=== PATIENT | male | born 1975 | race Two or more races ===

== ENCOUNTER 2019-06-23 13:07 | Inpatient (IN) | payer MEDICARE, MEDICAID ==
[~2019-06-23] VITALS: Ht 180.3 cm; Wt 171.9 kg
--- NOTE | 2019-06-23 13:11 | NUR ---
ED Nurse Note: pt brought in by ambulance from [facility] c/c SI and combative behavior to staff at [facility], per EMS report, the staff at the [facility] found pt cutting himself. no wound noted at this time. pt reports SI. pt AA&ox4, russian speaking, calm and cooperative, ambulatory w/ steady gait, vss, will cont monitor.
[2019-06-23 14:07] LABS: BASOPHILS % (AUTO) 0.8 % (0.0-2.0); EOSINOPHILS % (AUTO) 1.8 % (0.0-3.0); HEMATOCRIT 46.3 % (42.0-52.0); HEMOGLOBIN 15.2 G/DL (14.2-18.0); LYMPHOCYTES % (AUTO) 21.6 % (20.0-45.0); MEAN CORPUSCULAR VOLUME 85 FL (80-99); NEUTROPHILS % (AUTO) 65.8 % (45.0-75.0); PLATELET COUNT 226 K/UL (150-450); RED BLOOD COUNT 5.45 M/UL (4.70-6.10); RED CELL DISTRIBUTION WIDTH 13.3 % (11.6-14.8); WHITE BLOOD COUNT 7.2 K/UL (4.8-10.8)
--- NOTE | 2019-06-23 14:14 | NUR ---
patient has conservator public guardian instructed to fax the guardianship
[2019-06-23 14:24] LABS: ANION GAP 9 mmol/L (5-15); BLOOD UREA NITROGEN 17 mg/dL (7-18); CALCIUM 8.5 MG/DL (8.5-10.1); CARBON DIOXIDE 26 MMOL/L (21-32); CHLORIDE 105 MMOL/L (98-107); CREATININE 1.1 MG/DL (0.55-1.30); SODIUM 140 MMOL/L (136-145)
[2019-06-23 14:29] LABS: ALANINE AMINOTRANSFERASE 21 U/L (12-78); ALBUMIN 2.9 G/DL (3.4-5.0); ALBUMIN/GLOBULIN RATIO 0.6 (1.0-2.7); ALKALINE PHOSPHATASE 86 U/L (46-116); ASPARTATE AMINO TRANSFERASE 20 U/L (15-37); BILIRUBIN,TOTAL 0.5 MG/DL (0.2-1.0)
[2019-06-23] MEDS ORDERED: Depakote ER 500mg tab ORAL ONE (14:45)
[2019-06-23] MEDS ORDERED: Tylenol #3 tab (300mg/30mg) ORAL ONE (15:15)
[2019-06-23 15:20] VITALS: BP 108/68
[2019-06-23] MEDS ORDERED: Tetanus/Diptheria/Pertussis IM ONE (15:30)
[2019-06-23] MEDS ORDERED: Bacitracin Oint UD TOPIC ONE (15:30)
--- NOTE | 2019-06-23 15:38 | Emergency Room Report ---
History of Present Illness General Chief Complaint: Suicidal Source: Patient, Medical Record, EMS Present Illness HPI 44-year-old male presents ED for evaluation. Brought in by EMS from [facility] facility. Patient brought in for behavioral evaluation. History of psych. States is not been on his medications for the last few days because he does not have refills. Is hearing voices. Has superficial cuts to his left wrist. Denies SI or HI. Tetanus unknown. Denies pain. No other aggravating relieving factors. Denies any other associated symptoms Allergies: Coded Allergies: PENICILLINS (Verified Allergy, Unknown, 06/23/19) Patient History Past Medical History: GERD Past Surgical History: none Pertinent Family History: none Social History: Denies: smoking, alcohol use, drug use Immunizations: UTD Reviewed Nursing Documentation: PMH: Agreed; PSxH: Agreed Nursing Documentation-PMH Past Medical History: No History, Except For Hx Hypertension: Yes Hx Diabetes: Yes Hx Gastrointestinal Problems: Yes - gastritis History Of Psychiatric Problem: Yes - bipolar, anxiety Hx Seizures: Yes Review of Systems All Other Systems: negative except mentioned in HPI Physical Exam Vital Signs Date Time Temp Pulse Resp B/P (MAP) Pulse Ox O2 Delivery O2 Flow Rate FiO2 06/23/19 13:11 98.1 88 20 92/62 (72) 95 Room Air Sp02 EP Interpretation: reviewed, normal General Appearance: no apparent distress, alert, GCS 15, non-toxic, obese Head: normocephalic, atraumatic Eyes: bilateral eye normal inspection, bilateral eye PERRL ENT: hearing grossly normal, normal pharynx, no angioedema, normal voice Neck: full range of motion, supple/symm/no masses Respiratory: chest non-tender, lungs clear, normal breath sounds, speaking full sentences Cardiovascular #1: regular rate, rhythm, no edema Cardiovascular #2: 2+ carotid (R), 2+ carotid (L), 2+ radial (R), 2+ radial (L) , 2+ dorsalis pedis (R), 2+ dorsalis pedis (L) Gastrointestinal: normal bowel sounds, non tender, soft, non-distended, no guarding, no rebound Rectal: deferred Genitourinary: normal inspection, no CVA tenderness Musculoskeletal: back normal, gait/station normal, normal range of motion, non- tender Neurologic: alert, oriented x3, responsive, motor strength/tone normal, sensory intact, speech normal Psychiatric: mood/affect normal, no suicidal/homicidal ideation, depressed affect, anxious Reflexes: 3+ bicep (R), 3+ bicep (L), 3+ tricep (R), 3+ tricep (L), 3+ knee (R) , 3+ knee (L) Skin: other - multiple superficial lacerations to L wrist Lymphatic: no adenopathy Medical Decision Making Diagnostic Impression: Primary Impression: Behavioral disorder ER Course Hospital Course 44 yo M presents to ED for psychiatric evaluation. hearing voices. multiple superficial cuts to L wrist Differential diagnoses include: Major depressive disorder, unspecified psychosis , EtOH abuse, drug abuse Clinical course Patient placed on stretcher. On one to one observation. After initial history and physical I ordred labs, U. tox Labs-electrolytes normal, aspirin/Tylenol levels normal, EtOH level normal, U. tox negative, depakote level subtherpaeutic Given Depakote here. Bacitracin and dressing applied to left forearm.tetatnus given Spoke to Psychiatrist Dr Ángela Neumann. He will accept patient at [facility] for transfer. Spoke to Dr. Kaufman (covering for Dr Verdin) Patient is medically cleared and pending psychiatric evaluation. i. I feel this is a highly complex case requiring extensive working including EKG/Rhythm strip, Xray/CT/US, Blood/urine lab work, repeat exams while in ED, and administration of strong opiates/narcotics for pain control, admission to hospital or close patient follow up. Labs Test 06/23/19 13:30 06/23/19 13:39 White Blood Count 7.2 K/UL (4.8-10.8) Red Blood Count 5.45 M/UL (4.70-6.10) Hemoglobin 15.2 G/DL (14.2-18.0) Hematocrit 46.3 % (42.0-52.0) Mean Corpuscular Volume 85 FL (80-99) Mean Corpuscular Hemoglobin 28.0 PG (27.0-31.0) Mean Corpuscular Hemoglobin Concent 32.9 G/DL (32.0-36.0) Red Cell Distribution Width 13.3 % (11.6-14.8) Platelet Count 226 K/UL (150-450) Mean Platelet Volume 7.8 FL (6.5-10.1) Neutrophils (%) (Auto) 65.8 % (45.0-75.0) Lymphocytes (%) (Auto) 21.6 % (20.0-45.0) Monocytes (%) (Auto) 10.0 % (1.0-10.0) Eosinophils (%) (Auto) 1.8 % (0.0-3.0) Basophils (%) (Auto) 0.8 % (0.0-2.0) Sodium Level 140 MMOL/L (136-145) Potassium Level 4.0 MMOL/L (3.5-5.1) Chloride Level 105 MMOL/L (98-107) Carbon Dioxide Level 26 MMOL/L (21-32) Anion Gap 9 mmol/L (5-15) Blood Urea Nitrogen 17 mg/dL (7-18) Creatinine 1.1 MG/DL (0.55-1.30) Estimat Glomerular Filtration Rate > 60 mL/min (>60) Glucose Level 93 MG/DL (74-106) Calcium Level 8.5 MG/DL (8.5-10.1) Total Bilirubin 0.5 MG/DL (0.2-1.0) Aspartate Amino Transf (AST/SGOT) 20 U/L (15-37) Alanine Aminotransferase (ALT/SGPT) 21 U/L (12-78) Alkaline Phosphatase 86 U/L (46-116) Total Protein 7.4 G/DL (6.4-8.2) Albumin 2.9 G/DL (3.4-5.0) Globulin 4.5 g/dL Albumin/Globulin Ratio 0.6 (1.0-2.7) Salicylates Level 0.2 ug/mL (2.8-20) Acetaminophen Level < 2 MCG/ML (10-30) Valproic Acid (Depakene) Level 46 MCG/ML (50-100) Serum Alcohol < 3 mg/dL Urine Opiates Screen Negative (NEGATIVE) Urine Barbiturates Screen Negative (NEGATIVE) Phencyclidine (PCP) Screen Negative (NEGATIVE) Urine Amphetamines Screen Negative (NEGATIVE) Urine Benzodiazepines Screen Negative (NEGATIVE) Urine Cocaine Screen Negative (NEGATIVE) Urine Marijuana (THC) Screen Negative (NEGATIVE) Last Vital Signs Date Time Temp Pulse Resp B/P (MAP) Pulse Ox O2 Delivery O2 Flow Rate FiO2 06/23/19 13:11 98.1 88 20 92/62 (23) 95 Room Air Status: improved Disposition: XFER TO PSYCH HOSP/UNIT Condition: Serious Referrals: Sang Verdin DO (PCP) Humphrey Whatley MD Jun 23, 2019 15:38
--- NOTE | 2019-06-23 15:43 | NUR ---
Received patients conservatorship letters.
--- NOTE | 2019-06-23 16:14 | NUR ---
natty blackmon states they have not recived the clinicals
--- NOTE | 2019-06-23 16:45 | NUR ---
clinicals faxed again
[2019-06-23 17:57] VITALS: BP 100/65
--- NOTE | 2019-06-23 17:59 | NUR ---
ED Nurse Note: pt provided with dinner tray
--- NOTE | 2019-06-23 18:31 | NUR ---
call recived from [facility] report given will call back after presenting the case to machinery repair maintenance supervisor due to his weight. also will send clinician to evaluate
--- NOTE | 2019-06-23 18:46 | NUR ---
Irineo called from [place]- declined the patient. Dr. Whatley contacted to admit pat to [facility].
--- NOTE | 2019-06-23 19:05 | NUR ---
Regina supervisor felting notified for sitter.
--- NOTE | 2019-06-23 19:27 | NUR ---
ER Nurse Note: Pt verbally aggressive after refusing to wear hospial gown. ER MD, primary RN, sitter attempted to calm pt. Pt eventually calmed down, med ordered and given. Pt now calm and cooperative; agreed to change in gown. Pt a&ox4, VSS, no signs of distress. Pt has superficial lacs on LT arm. Pt provided water as requested. SLIV RT hand; patent. Will continue to [facility].
[2019-06-23 21:05] VITALS: BP 110/72
--- NOTE | 2019-06-23 21:05 | NUR ---
ER Nurse Note: Report given to THUY Madrigal for continuity of care. Pt a&ox4, VSS, no signs of distress. Pt left via wheelchair, with all belongings with sitter. Pt is verbally aggresstive. Pt agreed to MRSA swab but refused CRE/VRE, witnessed by Rohan, RN at bedside.
--- NOTE | 2019-06-23 21:05 | NUR ---
NURSE NOTES: Received report from THUY Mcclain from ER. Patient arrived on the unit via wheelchair with sitter having the belongings. Patient awake, alert, and verbally responsive with some aggression. Per patient, he was upset that they forced him to wear gown. But he calmed down eventually during the admission questionnaire. THUY Mcclain came up to finish MRSA swab and VRE swab. Patient refused VRE swab but agreed to do MRSA swab. Patient has multiple lacerations on the left arm and closed blister on the left leg with some skin abrasions. Patient's back and abdomen is clean without any skin issues except some scabs on abdomen, scattered. Patient refused to show his bottom or buttock, even after multiple attempts of encouraging him that it is to view that his skin is intact or not. Breathing unlabored and evenly without distress, discomfort, or sOB noted. Denies pain at this time. Bed placed at the lowest with brakes and side rails up x 1 for safety. Patient refused putting up another side rails on the side. Patient refused to count and confirm the belongings. Was able to inspect visually some clothing and cigarette. Explained patient about the smoking policy and patient agreed to store those cigarettes and light in the nursing station. Placed in the bag and kept in nursing station. Informed Charge nurse, Taya. IV site noted on the right hand intact and currently saline locked. Call light placed within reach and will continue to monitor and provide care as ordered.
[2019-06-23] MEDS ORDERED: Morphine Sulfate 2mg/ml Inj(IV/IM USE ONLY) IVP PRN (22:30)
[2019-06-23] MEDS ORDERED: Miralax 17gm pkt ORAL PRN (22:30)
[2019-06-23] MEDS ORDERED: LORazepam Inj 2mg/ml 1ml IV PRN (22:30)
[2019-06-23] MEDS ORDERED: Zolpidem 5mg tab ORAL PRN (22:30)
[2019-06-24] VITALS: BP 122/71
[2019-06-24 04:00] VITALS: BP 123/53
[2019-06-24 05:53] LABS: BASOPHILS % (AUTO) 0.7 % (0.0-2.0); EOSINOPHILS % (AUTO) 4.9 % (0.0-3.0); HEMOGLOBIN 13.5 G/DL (14.2-18.0); LYMPHOCYTES % (AUTO) 25.3 % (20.0-45.0); MEAN CORPUSCULAR VOLUME 85 FL (80-99); MONOCYTES % (AUTO) 10.6 % (1.0-10.0); NEUTROPHILS % (AUTO) 58.5 % (45.0-75.0); PLATELET COUNT 189 K/UL (150-450); RED BLOOD COUNT 4.82 M/UL (4.70-6.10); RED CELL DISTRIBUTION WIDTH 13.4 % (11.6-14.8); WHITE BLOOD COUNT 5.9 K/UL (4.8-10.8)
[2019-06-24] MEDS: NovoLOG Insulin Flexpen SUBQ SCH ×4 (06:14→21:00)
--- NOTE | 2019-06-24 06:30 | NUR ---
NURSE NOTES: Charge nurse, THUY Bain made aware of the open blister.
[2019-06-24 06:31] LABS: ALANINE AMINOTRANSFERASE 15 U/L (12-78); ALBUMIN 2.5 G/DL (3.4-5.0); ALBUMIN/GLOBULIN RATIO 0.7 (1.0-2.7); ALKALINE PHOSPHATASE 77 U/L (46-116); ASPARTATE AMINO TRANSFERASE 15 U/L (15-37); BILIRUBIN,TOTAL 0.3 MG/DL (0.2-1.0); BLOOD UREA NITROGEN 18 mg/dL (7-18); CALCIUM 7.6 MG/DL (8.5-10.1); CARBON DIOXIDE 30 MMOL/L (21-32); CHOLESTEROL 136 MG/DL (< 200); HDL CHOLESTEROL 25 MG/DL (40-60); TRIGLYCERIDES 209 MG/DL (30-150)
--- NOTE | 2019-06-24 06:31 | NUR ---
NURSE NOTES: Patient pop opened the blister. Clean open skin. Cleansed with NS and kept open to air. Will endorse to day time nurse if any follow up is necessary.
[2019-06-24 06:46] LABS: CHLORIDE 102 MMOL/L (98-107); POTASSIUM 3.3 MMOL/L (3.5-5.1); SODIUM 137 MMOL/L (136-145)
--- NOTE | 2019-06-24 07:38 | Consultation ---
History of Present Illness General Date patient seen: Jun 24, 2019 Chief Complaint: Suicidal Present Illness HPI 44-year-old male with psychiatric disorder, morbid obesity, DM, recently discharged from a [facility] facility to [facility] presented to ED for evaluation of hearing voices He wa not been on his medications for the last few days because he does not have refills. Has superficial cuts to his left wrist. He is admitted for further evaluation. Allergies: Coded Allergies: PENICILLINS (Verified Allergy, Unknown, 06/23/19) Medication History Unable to Obtain Active Prescriptions or Reported Meds Patient History Healthcare decision maker N Resuscitation status Full Code Advanced Directive on File Past Medical/Surgical History Past Medical/Surgical History: (1) Psychiatric disorder (2) Seizure disorder (3) Hypothyroidism (4) Diabetes mellitus (5) History of suicide attempt Review of Systems All Other Systems: negative except mentioned in HPI Physical Exam General Appearance: WD/WN, morbidly obese Lines, tubes and drains: peripheral HEENT: normocephalic Neck: non-tender, normal alignment Respiratory/Chest: chest wall non-tender, normal breath sounds Breasts: no masses Cardiovascular/Chest: normal peripheral pulses, normal rate Abdomen: normal bowel sounds Genitourinary/Rectal: normal genital exam Extremities: normal range of motion Last 24 Hour Vital Signs Date Time Temp Pulse Resp B/P (MAP) Pulse Ox O2 Delivery O2 Flow Rate FiO2 06/24/19 04:00 97.7 86 18 123/53 (76) 97 06/24/19 00:28 Room Air 06/24/19 00:00 97.5 70 18 122/71 (88) 97 06/23/19 21:05 98.1 82 18 110/72 98 Room Air 06/23/19 21:05 98.1 82 18 110/72 98 Room Air 06/23/19 17:57 98.1 77 19 100/65 96 Room Air 06/23/19 16:53 88 20 Room Air 06/23/19 16:49 98.0 06/23/19 15:20 98.1 75 20 108/68 95 Room Air 06/23/19 13:11 98.1 88 20 92/62 (72) 95 Room Air Intake and Output 06/23/19 06/24/19 18:59 06:59 Intake Total 200 ml 1400 ml Balance 200 ml 1400 ml Intake Oral 200 ml 1400 ml # Voids 1 1 Laboratory Tests Test 06/23/19 13:30 06/23/19 13:39 06/24/19 04:55 White Blood Count 7.2 K/UL (4.8-10.8) 5.9 K/UL (4.8-10.8) Red Blood Count 5.45 M/UL (4.70-6.10) 4.82 M/UL (4.70-6.10) Hemoglobin 15.2 G/DL (14.2-18.0) 13.5 G/DL (14.2-18.0) L Hematocrit 46.3 % (42.0-52.0) 41.0 % (42.0-52.0) L Mean Corpuscular Volume 85 FL (80-99) 85 FL (80-99) Mean Corpuscular Hemoglobin 28.0 PG (27.0-31.0) 28.1 PG (27.0-31.0) Mean Corpuscular Hemoglobin Concent 32.9 G/DL (32.0-36.0) 33.0 G/DL (32.0-36.0) Red Cell Distribution Width 13.3 % (11.6-14.8) 13.4 % (11.6-14.8) Platelet Count 226 K/UL (150-450) 189 K/UL (150-450) Mean Platelet Volume 7.8 FL (6.5-10.1) 7.5 FL (6.5-10.1) Neutrophils (%) (Auto) 65.8 % (45.0-75.0) 58.5 % (45.0-75.0) Lymphocytes (%) (Auto) 21.6 % (20.0-45.0) 25.3 % (20.0-45.0) Monocytes (%) (Auto) 10.0 % (1.0-10.0) 10.6 % (1.0-10.0) H Eosinophils (%) (Auto) 1.8 % (0.0-3.0) 4.9 % (0.0-3.0) H Basophils (%) (Auto) 0.8 % (0.0-2.0) 0.7 % (0.0-2.0) Sodium Level 140 MMOL/L (136-145) 137 MMOL/L (136-145) Potassium Level 4.0 MMOL/L (3.5-5.1) 3.3 MMOL/L (3.5-5.1) L Chloride Level 105 MMOL/L (98-107) 102 MMOL/L (98-107) Carbon Dioxide Level 26 MMOL/L (21-32) 30 MMOL/L (21-32) Anion Gap 9 mmol/L (5-15) Blood Urea Nitrogen 17 mg/dL (7-18) 18 mg/dL (7-18) Creatinine 1.1 MG/DL (0.55-1.30) 1.0 MG/DL (0.55-1.30) Estimat Glomerular Filtration Rate > 60 mL/min (>60) > 60 mL/min (>60) Glucose Level 93 MG/DL (74-106) 109 MG/DL (74-106) H Calcium Level 8.5 MG/DL (8.5-10.1) 7.6 MG/DL (8.5-10.1) L Total Bilirubin 0.5 MG/DL (0.2-1.0) 0.3 MG/DL (0.2-1.0) Aspartate Amino Transf (AST/SGOT) 20 U/L (15-37) 15 U/L (15-37) Alanine Aminotransferase (ALT/SGPT) 21 U/L (12-78) 15 U/L (12-78) Alkaline Phosphatase 86 U/L (46-116) 77 U/L (46-116) Total Protein 7.4 G/DL (6.4-8.2) 6.1 G/DL (6.4-8.2) L Albumin 2.9 G/DL (3.4-5.0) L 2.5 G/DL (3.4-5.0) L Globulin 4.5 g/dL 3.6 g/dL Albumin/Globulin Ratio 0.6 (1.0-2.7) L 0.7 (1.0-2.7) L Salicylates Level 0.2 ug/mL (2.8-20) L Acetaminophen Level < 2 MCG/ML (10-30) L Valproic Acid (Depakene) Level 46 MCG/ML (50-100) L Serum Alcohol < 3 mg/dL Urine Opiates Screen Negative (NEGATIVE) Urine Barbiturates Screen Negative (NEGATIVE) Phencyclidine (PCP) Screen Negative (NEGATIVE) Urine Amphetamines Screen Negative (NEGATIVE) Urine Benzodiazepines Screen Negative (NEGATIVE) Urine Cocaine Screen Negative (NEGATIVE) Urine Marijuana (THC) Screen Negative (NEGATIVE) Triglycerides Level 209 MG/DL (30-150) H Cholesterol Level 136 MG/DL (< 200) LDL Cholesterol 88 mg/dL (<100) HDL Cholesterol 25 MG/DL (40-60) L Cholesterol/HDL Ratio 5.4 (3.3-4.4) H Thyroid Stimulating Hormone (TSH) 2.892 uiU/mL (0.358-3.740) Height (Feet): 5 Height (Inches): 11.00 Weight (Pounds): 379 Medications Current Medications Medications (Trade) Dose Ordered Sig/Vannessa Route PRN Reason Start Time Stop Time Status Last Admin Dose Admin Acetaminophen (Tylenol) 650 mg Q4H PRN ORAL fever 06/23/19 22:30 07/23/19 22:29 Dextrose (Dextrose 50%) STAT PRN IV Hypoglycemia 06/23/19 22:30 07/23/19 22:29 Dextrose (Dextrose 50%) STAT PRN IV Hypoglycemia 06/23/19 22:30 07/23/19 22:29 Insulin Aspart (NovoLOG) BEFORE MEALS AND HS SUBQ 06/24/19 06:30 07/24/19 06:29 Lorazepam (Ativan 2mg/ml 1ml) 0.5 mg Q4H PRN IV For Anxiety 06/23/19 22:30 06/30/19 22:29 Morphine Sulfate (Morphine Sulfate) 1 mg Q4H PRN IVP For Pain 06/23/19 22:30 06/30/19 22:29 Ondansetron HCl (Zofran) 4 mg Q6H PRN IVP Nausea & Vomiting 06/23/19 22:30 07/23/19 22:29 Polyethylene Glycol (Miralax) 17 gm HSPRN PRN ORAL Constipation 06/23/19 22:30 07/23/19 22:29 Zolpidem Tartrate (Ambien) 5 mg HSPRN PRN ORAL Insomnia 06/23/19 22:30 06/30/19 22:29 Assessment/Plan Problem List: (1) Suicide gesture ICD Codes: X83.8XXA - Intentional self-harm by other specified means, initial encounter SNOMED: 66385637 (2) Seizure disorder ICD Codes: G40.909 - Epilepsy, unspecified, not intractable, without status epilepticus SNOMED: 045376085 (3) Psychiatric disorder ICD Codes: F99 - Mental disorder, not otherwise specified SNOMED: 21849443 (4) Hypothyroidism ICD Codes: E03.9 - Hypothyroidism, unspecified SNOMED: 28996716 (5) Diabetes mellitus ICD Codes: E11.9 - Type 2 diabetes mellitus without complications SNOMED: 55435367 (6) History of suicide attempt ICD Codes: Z91.5 - Personal history of self-harm SNOMED: 50791061, 225054169 Assessment/Plan: resume psych meds sliding scale I don't think pt is suicidal can go back to retirement once his medications are available at the retirement. Matt Cabrera MD Jun 24, 2019 07:38
--- NOTE | 2019-06-24 07:40 | NUR ---
HAND-OFF: Report given to Shan Castillo RN. Patient in stable condition with sitter at the bedside.
[2019-06-24 08:00] VITALS: BP 108/50
[2019-06-24] MEDS ORDERED: LORazepam 0.5mg tab ORAL PRN (08:00)
[2019-06-24] MEDS ORDERED: LIPITOR20 MG ORAL (08:04)
[2019-06-24] MEDS ORDERED: VALPROIC ACID250 MG PO (08:04)
[2019-06-24] MEDS ORDERED: ATIVAN1 MG ORAL (08:04)
[2019-06-24] MEDS ORDERED: LEVOTHYROXINE125 MCG ORAL (08:04)
[2019-06-24] MEDS ORDERED: ENALAPRIL MALEAT5 MG ORAL (08:04)
[2019-06-24] MEDS ORDERED: SEROQUEL200 MG ORAL ×2 (08:04)
[2019-06-24] MEDS ORDERED: PROPRANOLOL HCL10 MG ORAL (08:04)
[2019-06-24] MEDS ORDERED: SPIRONOLACTONE50 MG ORAL (08:04)
--- NOTE | 2019-06-24 08:15 | NUR ---
NURSE NOTES: PT AXOX3, CALM, RESTING IN BED. SITTER AT BEDSIDE. IN NO APPARENT DISTRESS AT THIS TIME. PT DENIES SUICIDAL THOUGHTS. WILL CONTINUE TO MONITOR.
[2019-06-24] MEDS ORDERED: Valproic Acid 250mg/5ml Liquid ORAL SCH (09:00)
[2019-06-24] MEDS: Enalapril 5mg tab ORAL SCH (09:47)
[2019-06-24 12:00] VITALS: BP 126/66
--- NOTE | 2019-06-24 12:00 | NUR ---
NURSE NOTES: PT REFUSING IV ACCESS.
--- NOTE | 2019-06-24 15:17 | NUR ---
CASE MANAGEMENT: INITIAL REVIEW 44 YO M [place] FROM [facility] CC: HEARING VOICES. SUPERFICIAL CUTS LEFT WRIST PMHx: GERD. HTN. DM. GASTRITIS. SZ. SI:ENCEPHALOPATHY. T 98.1 HR 88 RR 20 B/P 92/62 SATS 95% ON RA VALPROIC ACID 46 IS: DEPAKOTE PO X1 TYLENOL PO X1 TDAP IM X1 PATIENT ADMITTED TO MED/SURG STATUS 06/23/2019 @ 8831 DCP: PATIENT TO BE DISCHARGED TO HOME ONCE MEDICALLY CLEARED. PLAN OF CARE: PSYCH CONSULT Addendum: 06/24/19 at 1528 by Caroline Sullivan CM INTERQUAL MET
[2019-06-24 16:00] VITALS: BP 125/72
--- NOTE | 2019-06-24 19:30 | NUR ---
HAND-OFF: Report given to Abner FITZGERALD RN.
--- NOTE | 2019-06-24 19:53 | NUR ---
NURSE NOTES: Received report from Shan Castillo RN. Patient steadily sitting up on the bed, awake, alert, and verbally responsive to let his needs known. Breathing unlabored and evenly without signs of distress, discomfort, or sob. Denies pain at this time. Bed placed at the lowest with brakes on and side rails up x 2 and padded for history of epilepsy (patient denies history of epilepsy, written on the SNF medical packet). Sitter at the bedside. Reeducated patient regarding his diet plan. Patient was not able to understand, will reinforce during the shift. Call light placed within reach. Will continue to monitor and provide care as ordered.
[2019-06-24 20:00] VITALS: BP 127/76
[2019-06-24] MEDS: QUEtiapine 200mg tab ORAL SCH (21:18)
--- NOTE | 2019-06-24 22:20 | History & Physical ---
History and Physical History & Physicial Internal Medicine H&P Chief Complaint: Suicidal Source: Patient, Medical Record, EMS DOS: 06/24/[address] Antonella Verdin HPI 44-year-old male presents ED for evaluation. Brought in by EMS from [facility] facility. Patient brought in for behavioral evaluation. History of psych. States is not been on his medications for the last few days because he does not have refills. Is hearing voices. Has superficial cuts to his left wrist. Denies SI or HI. Tetanus unknown. Denies pain. No other aggravating relieving factors. Denies any other associated symptoms. Patient was Seen in the am, had a sitter 1:1 is very confused, could be due to seroquel and I evaluated with Dr. Verdin coverage, as well as with Dr. Cabrera Coded Allergies: PENICILLINS (Verified Allergy, Unknown, 06/23/19) Patient History Past Medical History: GERD Past Surgical History: none Pertinent Family History: none Social History: Denies: smoking, alcohol use, drug use Immunizations: UTD Reviewed Nursing Documentation: PMH: Agreed; PSxH: Agreed Nursing Documentation-PMH Past Medical History: No History, Except For Hx Hypertension: Yes Hx Diabetes: Yes Hx Gastrointestinal Problems: Yes - gastritis History Of Psychiatric Problem: Yes - bipolar, anxiety Hx Seizures: Yes Review of Systems Negative except mentioned in HPI Physical Exam Vital Signs Date Time Temp Pulse Resp B/P (MAP) Pulse Ox O2 Delivery O2 Flow Rate FiO2 06/23/19 13:11 98.1 88 20 92/62 (72) 95 Room Air General: no apparent distress, alert, GCS 15, non-toxic Head: normocephalic, atraumatic Resp: chest non-tender, lungs clear, normal breath sounds Cv: regular rate, rhythm, no edema Gi: normal bowel sounds, non tender, soft, non-distended Gu: normal inspection, no CVA tenderness Msk: back normal, gait/station normal Skin: other - multiple superficial lacerations to L wrist Lymphatic: no adenopathy Assessment and Recs: # Psychaitric admission for presents to ED for psychiatric evaluation. hearing voices. --> psychiatry to eval in regards to meds and management --> is currently with sitter 1:1 --> History of suicide attempt # Multiple superficial cuts to L wrist --> bactiracin as needed # Seizure disorder - Epilepsy, unspecified, not intractable, without status epilepticus --> currently well controlled # Hypothyroidism --> synthroid # Diabetes mellitus --> a1c goal <7 Tim Kaufman MD Jun 24, 2019 22:20
--- NOTE | 2019-06-24 23:05 | NUR ---
NURSE NOTES: Attempted to insert IV on patient but patient refused. Encouraged and explained more than three times. Informed MD regarding the situation.
[2019-06-25] VITALS: BP 140/70
[2019-06-25 04:00] VITALS: BP 135/71
[2019-06-25] MEDS: NovoLOG Insulin Flexpen SUBQ SCH ×4 (06:01→21:00)
[2019-06-25] MEDS ORDERED: LORazepam 0.5mg tab ORAL PRN (07:00)
--- NOTE | 2019-06-25 07:25 | NUR ---
NURSE NOTES: PT AXOX3, CALM, SITTING ON BED EATING BREAKFAST. PT YELLS AT RN "I WANT MORE FOOD! I WANT MORE FOOD! WHY WON'T YOU GIVE ME MORE FOOD?!". RN EXPLAINED TO PT HE IS ON DIABETIC DIET SO KITCHEN CANNOT SEND UP EXTRA PORTIONS OF FOOD. RN MADE DR MARIN AWARE OF PT'S COMPLAINTS. PT'S BLOOD SUGAR RANGE 77-[address] MARIN WITH ORDER TO CHANGE TO REGULAR DIET. OTHERWISE, IN NO APPARENT DISTRESS AT THIS TIME. SITTER AT BEDSIDE.
--- NOTE | 2019-06-25 07:40 | Pulmonology Progress Note ---
Assessment/Plan Problems: (1) Suicide gesture (2) Seizure disorder (3) Psychiatric disorder (4) Hypothyroidism (5) Diabetes mellitus (6) History of suicide attempt Assessment/Plan wants to go back to detention "never wanted to kill myself" awaiting psych consult. Subjective ROS Limited/Unobtainable: No Constitutional: Reports: no symptoms HEENT: Repors: no symptoms Allergies: Coded Allergies: PENICILLINS (Verified Allergy, Unknown, 06/23/19) Objective Last 24 Hour Vital Signs Date Time Temp Pulse Resp B/P (MAP) Pulse Ox O2 Delivery O2 Flow Rate FiO2 06/25/19 04:00 97.5 70 20 135/71 (92) 97 06/25/19 00:00 98.1 89 20 140/70 (93) 95 06/24/19 21:00 Room Air 06/24/19 20:00 98.1 75 20 127/76 (93) 94 06/24/19 16:00 97.5 72 20 125/72 (89) 95 06/24/19 12:00 97.3 67 23 126/66 (86) 92 06/24/19 09:47 118/69 06/24/19 09:00 Room Air 06/24/19 08:00 97.7 77 20 108/50 (69) 93 Intake and Output 06/24/19 06/25/19 19:00 07:00 Intake Total 840 ml Balance 840 ml Intake Oral 840 ml # Voids 4 General Appearance: WD/WN, other - obese HEENT: normocephalic Respiratory/Chest: lungs clear, no respiratory distress Cardiovascular: normal peripheral pulses, regular rhythm Abdomen: normal bowel sounds, no organomegaly Genitourinary: normal external genitalia Extremities: no clubbing Skin: no rash, no lesions Current Medications Medications (Trade) Dose Ordered Sig/Vannessa Route PRN Reason Start Time Stop Time Status Last Admin Dose Admin Acetaminophen (Tylenol) 650 mg Q4H PRN ORAL fever 06/23/19 22:30 07/23/19 22:29 Dextrose (Dextrose 50%) STAT PRN IV Hypoglycemia 06/23/19 22:30 07/23/19 22:29 Dextrose (Dextrose 50%) STAT PRN IV Hypoglycemia 06/23/19 22:30 07/23/19 22:29 Enalapril Maleate (Vasotec) 5 mg DAILY ORAL 06/24/19 09:00 07/24/19 08:59 Insulin Aspart (NovoLOG) BEFORE MEALS AND HS SUBQ 06/24/19 06:30 07/24/19 06:29 Levothyroxine Sodium (Synthroid) 100 mcg DAILY@0630 ORAL 06/25/19 06:30 07/25/19 06:29 06/25/19 05:59 Lorazepam (Ativan) 0.5 mg Q4H PRN ORAL For Anxiety 06/25/19 07:00 07/02/19 06:59 Morphine Sulfate (Morphine 10mg/ 5ml Oral Soln) 2 mg Q4H PRN ORAL For Pain 06/25/19 07:00 07/25/19 06:59 Ondansetron HCl (Zofran ODT) 4 mg Q6H PRN ORAL Nausea & Vomiting 06/25/19 07:00 07/25/19 06:59 Polyethylene Glycol (Miralax) 17 gm HSPRN PRN ORAL Constipation 06/23/19 22:30 07/23/19 22:29 Quetiapine Fumarate (SEROquel) 300 mg DAILY ORAL 06/24/19 09:00 07/24/19 08:59 06/24/19 09:50 Quetiapine Fumarate (SEROquel) 400 mg QHS ORAL 06/24/19 21:00 07/24/19 20:59 06/24/19 21:18 Valproic Acid (Depakene) 500 mg EVERY 12 HOURS ORAL 06/24/19 10:00 07/24/19 08:59 06/24/19 21:19 Zolpidem Tartrate (Ambien) 5 mg HSPRN PRN ORAL Insomnia 06/23/19 22:30 06/30/19 22:29 Matt Cabrera MD Jun 25, 2019 07:40
--- NOTE | 2019-06-25 07:42 | NUR ---
HAND-OFF: Report given to Shan Castillo RN. Patient in stable condition. All IV PRN (ativan, morphine, zofran) except dextrose 50% (PO route not available) was changed to PO medication per Dr. Cabrera's order due to patient refusing IV insertion. Consult for Mariann Corona was made per 's order.
[2019-06-25 08:00] VITALS: BP 110/74
[2019-06-25] MEDS: Enalapril 5mg tab ORAL SCH (09:00)
[2019-06-25 11:48] VITALS: BP 118/72
--- NOTE | 2019-06-25 15:54 | NUR ---
NURSE NOTES: SIMONE LEFT MESSSAGE FOR DR SANTOS FOR PSYCH CONSULT FOR SUICIDAL IDEATION AND CLEARANCE FOR DISCHARGE.
[2019-06-25 16:00] VITALS: BP 127/62
[2019-06-25] MEDS: Morphine Sulfate 10mg/5ml Oral Soln ud ORAL PRN (18:22)
--- NOTE | 2019-06-25 19:17 | NUR ---
HAND-OFF: Report given to Abner FITZGERALD RN.
--- NOTE | 2019-06-25 19:20 | NUR ---
NURSE NOTES: Received report from Shan Castillo RN. Patient alert, awake, and verbally responsive to let his needs known. He verbalizes that he is much happier with regular diet that he can eat chips. First thing patient asked was "get me some chips". Patient still with no IV access and MD aware. Breathing unlabored without distress or SOB noted. Sitter Joyce at the bedside for tonight. Bed placed at the lowest with brakes and side rails up x 2 for safety and bed mobility. Call light placed within reach. Will continue to monitor and provide care as ordered.
[2019-06-25 20:00] VITALS: BP 127/80
[2019-06-25] MEDS: QUEtiapine 200mg tab ORAL SCH (20:33)
--- NOTE | 2019-06-25 20:38 | General Progress Note ---
Assessment/Plan Status Narrative Assessment and Recs: # Psychaitric admission for presents to ED for psychiatric evaluation. hearing voices. --> psychiatry to eval in regards to meds and management --> is currently with sitter 1:1 --> History of suicide attempt --> psych made aware # Multiple superficial cuts to L wrist --> bactiracin as needed # Seizure disorder - epilepsy, unspecified, not intractable, without status epilepticus --> currently well controlled # Hypothyroidism --> synthroid po # Diabetes mellitus --> a1c goal <7 # Hypokalemia --> k prn, bmp reordered Appreciate databases software consultant recs Subjective Constitutional: Denies: no symptoms, chills, diaphoresis, fever, malaise, weakness, other HEENT: Denies: no symptoms, eye pain, blurred vision, tearing, double vision, ear pain, ear discharge, nose pain, nose congestion, throat pain, throat swelling, mouth pain, mouth swelling, other Gastrointestinal/Abdominal: Denies: no symptoms, abdomen distended, abdominal pain, black stools, tarry stools, blood in stool, constipated, diarrhea, difficulty swallowing, nausea, poor appetite, poor fluid intake, rectal bleeding , vomiting, other Genitourinary: Denies: no symptoms, burning, discharge, frequency, flank pain, hematuria, incontinence, pain, urgency, other Neurologic/Psychiatric: Denies: no symptoms, anxiety, depressed, emotional problems, headache, numbness, paresthesia, pre-existing deficit, seizure, tingling, tremors, weakness, other Endocrine: Denies: no symptoms, excessive sweating, flushing, intolerance to cold, intolerance to heat, increased hunger, increased thirst, increased urine, unexplained weight gain, unexplained weight loss, other Hematologic/Lymphatic: Denies: no symptoms, anemia, easy bleeding, easy bruising, other Allergies: Coded Allergies: PENICILLINS (Verified Allergy, Unknown, 06/23/19) Subjective 06/25: remains agitated, refusing ivl and made aware Dr. Narayan Neumann as well Objective Last 24 Hour Vital Signs Date Time Temp Pulse Resp B/P (MAP) Pulse Ox O2 Delivery O2 Flow Rate FiO2 06/25/19 16:00 97.1 78 19 127/62 (83) 95 06/25/19 11:48 97.4 74 18 118/72 (87) 94 06/25/19 09:00 Room Air 06/25/19 09:00 110/74 06/25/19 08:00 98.0 76 18 110/74 (86) 96 06/25/19 04:00 97.5 70 20 135/71 (92) 97 06/25/19 00:00 98.1 89 20 140/70 (93) 95 06/24/19 21:00 Room Air Intake and Output 06/24/19 06/25/19 19:00 07:00 Intake Total 840 ml Balance 840 ml Intake Oral 840 ml # Voids 4 Height (Feet): 5 Height (Inches): 11.00 Weight (Pounds): 379 Objective General: no apparent distress, alert Head: normocephalic, atraumatic Resp: chest non-tender, lungs clear, normal breath sounds Cv: regular rate, rhythm, no edema Gi: normal bowel sounds, non tender, soft, non-distended Gu: normal inspection, no CVA tenderness Msk: back normal, gait/station normal Skin: other - multiple superficial lacerations to L wrist Lymphatic: no adenopathy Tim Kaufman MD Jun 25, 2019 20:38
[2019-06-26] VITALS: BP 119/77
[2019-06-26 04:00] VITALS: BP 138/85
[2019-06-26] MEDS: NovoLOG Insulin Flexpen SUBQ SCH ×4 (06:03→20:35)
--- NOTE | 2019-06-26 07:31 | NUR ---
HAND-OFF: Report given to THUY Blanco. Patient in stable condition. 1:1 sitter at bedside.
--- NOTE | 2019-06-26 07:35 | NUR ---
NURSE NOTES: Received pt in bed. AO x 4. No s/s of pain/distress. No IV access and MD aware. Sitter at the bedside. Bed is in the lowest and locked. Side rails x 2. Call light within reach. Will continue to monitor
[2019-06-26 08:00] VITALS: BP_SYST 129; BP_SYST 139; BP_DIAS 77; BP_DIAS 91
--- NOTE | 2019-06-26 09:00 | NUR ---
NURSE NOTES: Patient needs to be cleared by Dr. Neumann to be discharged. Called to remind that he has consult for the patient and made aware.
--- NOTE | 2019-06-26 09:18 | General Progress Note ---
Assessment/Plan Status Narrative # Psychaitric admission for presents to ED for psychiatric evaluation. hearing voices. --> psychiatry to eval in regards to meds and management --> is currently with sitter 1:1 --> History of suicide attempt --> psych made aware, pending clearance # Multiple superficial cuts to L wrist --> bactiracin as needed # Seizure disorder - epilepsy, unspecified, not intractable, w/o status epilepticus --> currently well controlled # Hypothyroidism --> synthroid po # Diabetes mellitus --> a1c goal <7 # Hypokalemia --> k prn, bmp reordered Appreciate plan consultant recs Subjective Constitutional: Denies: no symptoms, chills, diaphoresis, fever, malaise, weakness, other Cardiovascular: Denies: no symptoms, chest pain, edema, irregular heart rate, lightheadedness, palpitations, syncope, other Respiratory: Denies: no symptoms, cough, orthopnea, shortness of breath, SOB with excertion, SOB at rest, sputum, stridor, wheezing, other Gastrointestinal/Abdominal: Denies: no symptoms, abdomen distended, abdominal pain, black stools, tarry stools, blood in stool, constipated, diarrhea, difficulty swallowing, nausea, poor appetite, poor fluid intake, rectal bleeding , vomiting, other Genitourinary: Denies: no symptoms, burning, discharge, frequency, flank pain, hematuria, incontinence, pain, urgency, other Neurologic/Psychiatric: Denies: no symptoms, anxiety, depressed, emotional problems, headache, numbness, paresthesia, pre-existing deficit, seizure, tingling, tremors, weakness, other Endocrine: Denies: no symptoms, excessive sweating, flushing, intolerance to cold, intolerance to heat, increased hunger, increased thirst, increased urine, unexplained weight gain, unexplained weight loss, other Allergies: Coded Allergies: PENICILLINS (Verified Allergy, Unknown, 06/23/19) Subjective 06/25: remains agitated, refusing ivl and made aware Dr. Narayan Neumann as well 06/26: less agitated overnight, no bleeding, overall feeling better, psych clearance pending Objective Last 24 Hour Vital Signs Date Time Temp Pulse Resp B/P (MAP) Pulse Ox O2 Delivery O2 Flow Rate FiO2 06/26/19 04:00 97.2 83 20 138/85 (102) 94 06/26/19 00:00 97.7 97 20 119/77 (91) 93 06/25/19 21:00 Room Air 06/25/19 20:00 98.0 76 19 127/80 (96) 92 06/25/19 16:00 97.1 78 19 127/62 (83) 95 06/25/19 11:48 97.4 74 18 118/72 (87) 94 Intake and Output 06/25/19 06/26/19 19:00 07:00 Intake Total 800 ml 600 ml Balance 800 ml 600 ml Intake Oral 800 ml 600 ml # Voids 3 3 # Bowel Movements 1 2 Height (Feet): 5 Height (Inches): 11.00 Weight (Pounds): 379 Objective General: no apparent distress, alert Head: normocephalic, atraumatic Resp: chest non-tender, lungs clear, normal breath sounds Cv: regular rate, rhythm, no edema Gi: normal bowel sounds, non tender, soft, non-distended Gu: normal inspection, no CVA tenderness Msk: back normal, gait/station normal Skin: other - multiple superficial lacerations to L wrist Lymphatic: no adenopathy Tim Kaufman MD Jun 26, 2019 09:18
[2019-06-26] MEDS: Morphine Sulfate 10mg/5ml Oral Soln ud ORAL PRN (09:32)
[2019-06-26] MEDS: Enalapril 5mg tab ORAL SCH (09:33)
--- NOTE | 2019-06-26 10:20 | NUR ---
NURSE NOTES: PAGED DR GOODWIN RE PSYCH CONSULT, LEFT VOICEMAIL, AWAIT CALLBACK
[2019-06-26 12:00] VITALS: BP 131/80
--- NOTE | 2019-06-26 12:01 | Pulmonology Progress Note ---
Assessment/Plan Problems: (1) Suicide gesture (2) Seizure disorder (3) Psychiatric disorder (4) Hypothyroidism (5) Diabetes mellitus (6) History of suicide attempt Assessment/Plan comfortable all reviewed wants to go back to senior living "never wanted to kill myself" awaiting psych consult. Subjective ROS Limited/Unobtainable: No Constitutional: Reports: no symptoms HEENT: Repors: no symptoms Respiratory: Reports: no symptoms Allergies: Coded Allergies: PENICILLINS (Verified Allergy, Unknown, 06/23/19) Objective Last 24 Hour Vital Signs Date Time Temp Pulse Resp B/P (MAP) Pulse Ox O2 Delivery O2 Flow Rate FiO2 06/26/19 09:33 129/77 06/26/19 09:00 Room Air 06/26/19 08:00 97.5 69 20 129/77 (94) 94 06/26/19 04:00 97.2 83 20 138/85 (102) 94 06/26/19 00:00 97.7 97 20 119/77 (91) 93 06/25/19 21:00 Room Air 06/25/19 20:00 98.0 76 19 127/80 (96) 92 06/25/19 16:00 97.1 78 19 127/62 (83) 95 Intake and Output 06/25/19 06/26/19 19:00 07:00 Intake Total 800 ml 600 ml Balance 800 ml 600 ml Intake Oral 800 ml 600 ml # Voids 3 3 # Bowel Movements 1 2 General Appearance: WD/WN HEENT: normocephalic, atraumatic Respiratory/Chest: chest wall non-tender, lungs clear Cardiovascular: normal peripheral pulses, normal rate Abdomen: normal bowel sounds, no organomegaly Extremities: no cyanosis Skin: no lesions Microbiology Date/Time Source Procedure Growth Status 06/23/19 21:30 Nasal Nares MRSA Culture - Final NO METHICILLIN RESISTANT STAPH AUREUS... Complete Current Medications Medications (Trade) Dose Ordered Sig/Vannessa Route PRN Reason Start Time Stop Time Status Last Admin Dose Admin Acetaminophen (Tylenol) 650 mg Q4H PRN ORAL fever 06/23/19 22:30 07/23/19 22:29 Dextrose (Dextrose 50%) STAT PRN IV Hypoglycemia 06/23/19 22:30 07/23/19 22:29 Dextrose (Dextrose 50%) STAT PRN IV Hypoglycemia 06/23/19 22:30 07/23/19 22:29 Enalapril Maleate (Vasotec) 5 mg DAILY ORAL 06/24/19 09:00 07/24/19 08:59 06/26/19 09:33 Insulin Aspart (NovoLOG) BEFORE MEALS AND HS SUBQ 06/24/19 06:30 07/24/19 06:29 06/25/19 12:22 Levothyroxine Sodium (Synthroid) 100 mcg DAILY@0630 ORAL 06/25/19 06:30 07/25/19 06:29 06/26/19 05:52 Lorazepam (Ativan) 0.5 mg Q4H PRN ORAL For Anxiety 06/25/19 07:00 07/02/19 06:59 Morphine Sulfate (Morphine 10mg/ 5ml Oral Soln) 2 mg Q4H PRN ORAL For Pain 06/25/19 07:00 07/25/19 06:59 06/26/19 09:32 Ondansetron HCl (Zofran ODT) 4 mg Q6H PRN ORAL Nausea & Vomiting 06/25/19 07:00 07/25/19 06:59 Polyethylene Glycol (Miralax) 17 gm HSPRN PRN ORAL Constipation 06/23/19 22:30 07/23/19 22:29 Quetiapine Fumarate (SEROquel) 300 mg DAILY ORAL 06/24/19 09:00 07/24/19 08:59 06/26/19 09:31 Quetiapine Fumarate (SEROquel) 400 mg QHS ORAL 06/24/19 21:00 07/24/19 20:59 06/25/19 20:33 Valproic Acid (Depakene) 500 mg EVERY 12 HOURS ORAL 06/24/19 10:00 07/24/19 08:59 06/26/19 09:32 Zolpidem Tartrate (Ambien) 5 mg HSPRN PRN ORAL Insomnia 06/23/19 22:30 06/30/19 22:29 Matt Cabrera MD Jun 26, 2019 12:01
--- NOTE | 2019-06-26 12:54 | NUR ---
SUPERVISOR SEAMINGFLIGHT OPERATIONS INSPECTOR SI: ENCEPHALOPATHY T. 97.5 HR 61 RR 20 B/P 129/77 RA 96% K 3.3 IS: SEROQUEL PO DEPAKENE PO SYNTHROID PO MED/SURG STATUS
--- NOTE | 2019-06-26 14:28 | NUR ---
Social Work This SW received a notification due to patient was feeling suicidal at the senior care (lives at [facility]). This SW met with patient who appears to show mentally delayed, while explaining he was not feeling suicidal, nor has suicidal ideations at this time. Patient explains he is wanting to discharge back to the senior care as soon s possible. Pending Psychiatric evaluation for clearance (patient continues to have a 1:1 sitter). This Sw provided brief support and counseling (suggested telling staff when he is truly having thoughts to harm self). Patent stating "I was out of control, but I did not want to harm myself."
--- NOTE | 2019-06-26 15:05 | NUR ---
NURSE NOTES:WOUND CARE NOTES:Morbidly obese pt whom presented on admission with wound carlos manuel L tibia .Base of wound is moist -viable with irregular and macerated borders (L)2.5cm x (W)2.7cm. Small amt serous exudate noted.Bilat lower ext edematous. Haemosiderin stain Bilat lower ext. Pt encouraged to elevate legs while sitting in chair and to use pillows to elevate legs when sitting in w/c. Recommendations. Cleanse wound with Saline. Apply Therahoney. Apply Cavilon Skin Barrier periwound. cover with Optifoam drsg. Change Daily and prn.
[2019-06-26 16:00] VITALS: BP 144/96
--- NOTE | 2019-06-26 19:00 | NUR ---
NURSE NOTES Patient received A/AOX4 . Patient denies pain at this time . No SOB/ NO N/V noted . Patient no IV access MD aware. Patient ambulated to bathroom ,Safety/ fall precaution precautions . sitter 1:1 at bedside (Luzmaria Neumann). call light within reach . Bed in low position bed alarm on will continue to monitor.
--- NOTE | 2019-06-26 19:33 | NUR ---
HAND-OFF: Report given to THUY Madrigal.
--- NOTE | 2019-06-26 19:49 | NUR ---
NURSE NOTES: Received report from THUY Blanco. Patient is stable condition, AAO x 4. Asking for sandwich and chocolate. Sitter name Luzmaria at the bedside for night time nanny. Patient breathing unlabored without signs of distress or SOB. Denies pain at this time. Bed placed at the lowest level with brakes and side rails up x 2 for bed mobility and safety. Call light placed within reach and encourage to press. Will continue to monitor and provide care as ordered.
[2019-06-26 20:00] VITALS: BP 126/76
[2019-06-26] MEDS: QUEtiapine 200mg tab ORAL SCH (20:30)
--- NOTE | 2019-06-26 21:41 | NUR ---
NURSE NOTES:Patient eat 100% house snacks .
[2019-06-27] VITALS: BP 124/72
[2019-06-27 03:54] VITALS: BP 128/76
--- NOTE | 2019-06-27 04:03 | NUR ---
NURSE NOTES: Patient seen by Dr. Neumann at 0400. Patient cleared for psych evaluation per Dr. Neumann.
[2019-06-27] MEDS: NovoLOG Insulin Flexpen SUBQ SCH ×4 (06:00→20:18)
--- NOTE | 2019-06-27 07:39 | NUR ---
HAND-OFF: Report given to THUY Tovar. Patient in stable condition.
[2019-06-27 08:00] VITALS: BP 124/78
[2019-06-27] MEDS: Enalapril 5mg tab ORAL SCH (08:34)
[2019-06-27] MEDS: Morphine Sulfate 10mg/5ml Oral Soln ud ORAL PRN (08:41)
--- NOTE | 2019-06-27 09:04 | NUR ---
NURSE NOTES: pt in bed with no sob nor in any form of distress noted. pt is with sitter. no SI noted at this time. will continue to monitor
--- NOTE | 2019-06-27 10:28 | Hematology/Onc Progress Note ---
Assessment/Plan Assessment/Plan Status Narrative # Anemia due to underlying chronic disease --> anemia panel to be ordered if hgb downtrends --> cbc ordered, but PATIENT REFUSES # Psychaitric admission for presents to ED for psychiatric evaluation. hearing voices. --> psychiatry to era in regards to meds and management --> is currently with sitter 1:1 --> History of suicide attempt --> psych made aware, osych eval pending # Multiple superficial cuts to L wrist --> bactiracin as needed # Seizure disorder - epilepsy, unspecified, not intractable, w/o status epilepticus --> currently well controlled # Hypothyroidism --> synthroid po # Diabetes mellitus --> a1c goal <7 # Hypokalemia --> k prn, bmp reordered Appreciate professional housing consultant recs Subjective HEENT: Denies: no symptoms, eye pain, blurred vision, tearing, double vision, ear pain, ear discharge, nose pain, nose congestion, throat pain, throat swelling, mouth pain, mouth swelling, other Cardiovascular: Denies: no symptoms, chest pain, edema, irregular heart rate, lightheadedness, palpitations, syncope, other Respiratory: Denies: no symptoms, cough, shortness of breath, SOB with excertion, SOB at rest, sputum, wheezing, other Gastrointestinal/Abdominal: Denies: no symptoms, abdomen distended, abdominal pain, black stools, tarry stools, blood in stool, constipated, diarrhea, difficulty swallowing, nausea, poor appetite, poor fluid intake, rectal bleeding , vomiting, other Genitourinary: Denies: no symptoms, burning, discharge, frequency, flank pain, hematuria, incontinence, pain, urgency, other Neurologic/Psychiatric: Denies: no symptoms, anxiety, depressed, emotional problems, headache, numbness, paresthesia, pre-existing deficit, seizure, tingling, tremors, weakness, other Endocrine: Denies: no symptoms, excessive sweating, flushing, intolerance to cold, intolerance to heat, increased hunger, increased thirst, increased urine, unexplained weight gain, unexplained weight loss, other Hematologic/Lymphatic: Denies: no symptoms, anemia, easy bleeding, easy bruising, adenopathy, other Allergies: Coded Allergies: PENICILLINS (Verified Allergy, Unknown, 06/23/19) Subjective 06/25: remains agitated, refusing ivl and made aware Dr. Narayan Neumann as well 06/26: less agitated overnight, no bleeding, overall feeling better, psych clearance pending 06/27: with 1:1 sitter at this time, was seen by Dr. Neumann earlier Objective Objective Current Medications Medications (Trade) Dose Ordered Sig/Vannessa Route PRN Reason Start Time Stop Time Status Last Admin Dose Admin Acetaminophen (Tylenol) 650 mg Q4H PRN ORAL fever 06/23/19 22:30 07/23/19 22:29 Dextrose (Dextrose 50%) STAT PRN IV Hypoglycemia 06/23/19 22:30 07/23/19 22:29 Dextrose (Dextrose 50%) STAT PRN IV Hypoglycemia 06/23/19 22:30 07/23/19 22:29 Enalapril Maleate (Vasotec) 5 mg DAILY ORAL 06/24/19 09:00 07/24/19 08:59 06/27/19 08:34 Insulin Aspart (NovoLOG) BEFORE MEALS AND HS SUBQ 06/24/19 06:30 07/24/19 06:29 06/27/19 06:00 Levothyroxine Sodium (Synthroid) 100 mcg DAILY@0630 ORAL 06/25/19 06:30 07/25/19 06:29 06/27/19 05:56 Lorazepam (Ativan) 0.5 mg Q4H PRN ORAL For Anxiety 06/25/19 07:00 07/02/19 06:59 Morphine Sulfate (Morphine 10mg/ 5ml Oral Soln) 2 mg Q4H PRN ORAL For Pain 06/25/19 07:00 07/25/19 06:59 06/27/19 08:41 Ondansetron HCl (Zofran ODT) 4 mg Q6H PRN ORAL Nausea & Vomiting 06/25/19 07:00 07/25/19 06:59 Polyethylene Glycol (Miralax) 17 gm HSPRN PRN ORAL Constipation 06/23/19 22:30 07/23/19 22:29 Quetiapine Fumarate (SEROquel) 300 mg DAILY ORAL 06/24/19 09:00 07/24/19 08:59 06/27/19 08:34 Quetiapine Fumarate (SEROquel) 400 mg QHS ORAL 06/24/19 21:00 8/26/19 20:59 06/26/19 20:30 Valproic Acid (Depakene) 500 mg EVERY 12 HOURS ORAL 06/24/19 10:00 07/24/19 08:59 06/27/19 08:35 Zolpidem Tartrate (Ambien) 5 mg HSPRN PRN ORAL Insomnia 06/23/19 22:30 06/30/19 22:29 Last 24 Hour Vital Signs Date Time Temp Pulse Resp B/P (MAP) Pulse Ox O2 Delivery O2 Flow Rate FiO2 06/27/19 09:31 Room Air 06/27/19 09:11 97.7 06/27/19 08:34 124/78 06/27/19 08:00 97.7 90 20 124/78 (93) 94 06/27/19 03:54 98.4 88 20 128/76 (93) 98 06/27/19 00:00 98.4 68 20 124/72 (89) 97 06/26/19 21:00 Room Air 06/26/19 20:00 97.2 73 20 126/76 (93) 96 06/26/19 16:00 98.6 78 19 144/96 (112) 95 06/26/19 12:00 97.4 71 20 131/80 (97) 95 06/26/19 09:33 129/77 06/26/19 09:00 Room Air 06/26/19 08:00 97.0 75 18 139/91 (107) 96 06/26/19 04:00 97.2 83 20 138/85 (102) 94 06/26/19 00:00 97.7 97 20 119/77 (91) 93 06/25/19 21:00 Room Air 06/25/19 20:00 98.0 76 19 127/80 (96) 92 06/25/19 16:00 97.1 78 19 127/62 (83) 95 06/25/19 11:48 97.4 74 18 118/72 (87) 94 Intake and Output 06/26/19 06/27/19 19:00 07:00 Intake Total 840 ml 1947 ml Balance 840 ml 1947 ml Intake Oral 840 ml 1947 ml # Voids 6 6 # Bowel Movements 1 1 Height (Feet): 5 Height (Inches): 11.00 Weight (Pounds): 379 Objective General: no apparent distress, alert Head: normocephalic, atraumatic Resp: chest non-tender, lungs clear, normal breath sounds Cv: regular rate, rhythm, no edema Gi: normal bowel sounds, non tender, soft, non-distended Gu: normal inspection, no CVA tenderness Msk: back normal, gait/station normal Skin: other - multiple superficial lacerations to L wrist Lymphatic: no adenopathy Tim Kaufman MD Jun 27, 2019 10:28
--- NOTE | 2019-06-27 11:10 | Pulmonology Progress Note ---
Assessment/Plan Problems: (1) Suicide gesture (2) Seizure disorder (3) Psychiatric disorder (4) Hypothyroidism (5) Diabetes mellitus (6) History of suicide attempt Assessment/Plan comfortable all reviewed wants to go back to snf "never wanted to kill myself" awaiting psych consult. Subjective ROS Limited/Unobtainable: No Constitutional: Reports: no symptoms HEENT: Repors: no symptoms Respiratory: Reports: no symptoms Allergies: Coded Allergies: PENICILLINS (Verified Allergy, Unknown, 06/23/19) Objective Last 24 Hour Vital Signs Date Time Temp Pulse Resp B/P (MAP) Pulse Ox O2 Delivery O2 Flow Rate FiO2 06/27/19 09:31 Room Air 06/27/19 09:11 97.7 06/27/19 08:34 124/78 06/27/19 08:00 97.7 90 20 124/78 (93) 94 06/27/19 03:54 98.4 88 20 128/76 (93) 98 06/27/19 00:00 98.4 68 20 124/72 (89) 97 06/26/19 21:00 Room Air 06/26/19 20:00 97.2 73 20 126/76 (93) 96 06/26/19 16:00 98.6 78 19 144/96 (112) 95 06/26/19 12:00 97.4 71 20 131/80 (97) 95 Intake and Output 06/26/19 06/27/19 19:00 07:00 Intake Total 840 ml 1947 ml Balance 840 ml 1947 ml Intake Oral 840 ml 1947 ml # Voids 6 6 # Bowel Movements 1 1 General Appearance: WD/WN HEENT: normocephalic, atraumatic Respiratory/Chest: chest wall non-tender, normal breath sounds Cardiovascular: normal peripheral pulses, normal rate Abdomen: soft, non tender, no organomegaly Extremities: no cyanosis Skin: no rash Current Medications Medications (Trade) Dose Ordered Sig/Vannessa Route PRN Reason Start Time Stop Time Status Last Admin Dose Admin Acetaminophen (Tylenol) 650 mg Q4H PRN ORAL fever 06/23/19 22:30 07/23/19 22:29 Dextrose (Dextrose 50%) STAT PRN IV Hypoglycemia 06/23/19 22:30 07/23/19 22:29 Dextrose (Dextrose 50%) STAT PRN IV Hypoglycemia 06/23/19 22:30 07/23/19 22:29 Enalapril Maleate (Vasotec) 5 mg DAILY ORAL 06/24/19 09:00 07/24/19 08:59 06/27/19 08:34 Insulin Aspart (NovoLOG) BEFORE MEALS AND HS SUBQ 06/24/19 06:30 07/24/19 06:29 06/27/19 06:00 Levothyroxine Sodium (Synthroid) 100 mcg DAILY@0630 ORAL 06/25/19 06:30 07/25/19 06:29 06/27/19 05:56 Lorazepam (Ativan) 0.5 mg Q4H PRN ORAL For Anxiety 06/25/19 07:00 07/02/19 06:59 Morphine Sulfate (Morphine 10mg/ 5ml Oral Soln) 2 mg Q4H PRN ORAL For Pain 06/25/19 07:00 07/25/19 06:59 06/27/19 08:41 Ondansetron HCl (Zofran ODT) 4 mg Q6H PRN ORAL Nausea & Vomiting 06/25/19 07:00 07/25/19 06:59 Polyethylene Glycol (Miralax) 17 gm HSPRN PRN ORAL Constipation 06/23/19 22:30 07/23/19 22:29 Quetiapine Fumarate (SEROquel) 300 mg DAILY ORAL 06/24/19 09:00 07/24/19 08:59 06/27/19 08:34 Quetiapine Fumarate (SEROquel) 400 mg QHS ORAL 06/24/19 21:00 07/24/19 20:59 06/26/19 20:30 Valproic Acid (Depakene) 500 mg EVERY 12 HOURS ORAL 06/24/19 10:00 07/24/19 08:59 06/27/19 08:35 Zolpidem Tartrate (Ambien) 5 mg HSPRN PRN ORAL Insomnia 06/23/19 22:30 06/30/19 22:29 Matt Cabrera MD Jun 27, 2019 11:10
--- NOTE | 2019-06-27 13:16 | General Progress Note ---
Assessment/Plan Problem List: (1) HTN (hypertension) ICD Codes: I10 - Essential (primary) hypertension SNOMED: 34355845 (2) Encephalopathy ICD Codes: G93.40 - Encephalopathy, unspecified SNOMED: 44836839 (3) Behavioral disorder SNOMED: 539128312 (4) Diabetes mellitus ICD Codes: E11.9 - Type 2 diabetes mellitus without complications SNOMED: 24898725 (5) Hypothyroidism ICD Codes: E03.9 - Hypothyroidism, unspecified SNOMED: 23457298 (6) Seizure disorder ICD Codes: G40.909 - Epilepsy, unspecified, not intractable, without status epilepticus SNOMED: 206827430 (7) Psychiatric disorder ICD Codes: F99 - Mental disorder, not otherwise specified SNOMED: 36312163 Status: stable, progressing Assessment/Plan: cbc bmp am dc if clear by psyc Subjective Constitutional: Reports: weakness Allergies: Coded Allergies: PENICILLINS (Verified Allergy, Unknown, 06/23/19) All Systems: reviewed and negative except above Subjective eating calm Objective Last 24 Hour Vital Signs Date Time Temp Pulse Resp B/P (MAP) Pulse Ox O2 Delivery O2 Flow Rate FiO2 06/27/19 09:31 Room Air 06/27/19 09:11 97.7 06/27/19 08:34 124/78 06/27/19 08:00 97.7 90 20 124/78 (93) 94 06/27/19 03:54 98.4 88 20 128/76 (93) 98 06/27/19 00:00 98.4 68 20 124/72 (89) 97 06/26/19 21:00 Room Air 06/26/19 20:00 97.2 73 20 126/76 (93) 96 06/26/19 16:00 98.6 78 19 144/96 (112) 95 Intake and Output 06/26/19 06/27/19 19:00 07:00 Intake Total 840 ml 1947 ml Balance 840 ml 1947 ml Intake Oral 840 ml 1947 ml # Voids 6 6 # Bowel Movements 1 1 Height (Feet): 5 Height (Inches): 11.00 Weight (Pounds): 379 General Appearance: lethargic EENT: normal ENT inspection Neck: normal alignment Cardiovascular: normal peripheral pulses, normal rate, regular rhythm Respiratory/Chest: chest wall non-tender, lungs clear, normal breath sounds Abdomen: normal bowel sounds, non tender, soft Extremities: normal inspection Edema: no edema noted Arm (L), no edema noted Arm (R), no edema noted Leg (L), no edema noted Leg (R), no edema noted Pedal (L), no edema noted Pedal (R), no edema noted Generalized Neurologic: responsive, motor weakness Skin: normal pigmentation, warm/dry Sang Verdin DO Jun 27, 2019 13:16
--- NOTE | 2019-06-27 13:18 | NUR ---
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 97.7 HR 90 RR 20 B/P 124/78 RA 98% DOPPLER STUDY BLE- NEGATIVE FOR DVT IS: SEROQUEL PO DEPAKOTE PO PSYCH CONSULT MED/SURG STATUS
--- NOTE | 2019-06-27 13:42 | NUR ---
SAMPLE SELECTOR NOTES PT ACCEPTED BACK TO ROOM 10 BED C. NURSE TO CALL FOR REPORT TO [phone]. [facility] TO TRANSPORT PT WITH ETA 1500.
[2019-06-27] MEDS ORDERED: ACETAMINOPHEN325 M1 ORAL (14:01)
[2019-06-27] MEDS ORDERED: NOVOLOG100 UNIT/5 SQ (14:02)
[2019-06-27] MEDS ORDERED: ATIVAN0.5 MG ORAL (14:03)
[2019-06-27] MEDS ORDERED: MORPHINE S10 MG/5 ML ORAL (14:05)
[2019-06-27] MEDS ORDERED: MIRALAX17 G2 ORAL (14:05)
[2019-06-27] MEDS ORDERED: SEROQUEL100 MG ORAL (14:06)
[2019-06-27] MEDS ORDERED: AMBIEN5 MG ORAL (14:07)
--- NOTE | 2019-06-27 14:07 | NUR ---
*-* DISCHARGE PLANNED *-* PATIENT IS DISCHARGED TO: [facility] ROOM# 10-C SHELTER T: [phone] FOR NURSE TO NURSE REPORT *-* [facility] HAS BEEN PLACED ON WILL CALL *-*
[2019-06-27 15:47] VITALS: BP 112/72
--- NOTE | 2019-06-27 18:45 | Consultation ---
DATE OF CONSULTATION: 06/27/2019 INITIAL PSYCHIATRIC EVALUATION CONSULTING PHYSICIAN: Thien Motta M.D. HISTORY OF PRESENT ILLNESS: The patient is a male patient who is 44 years old. He was admitted to the hospital secondary to encephalopathy. This patient continues to have some confusion, disorganized thought process, and mood lability. He was admitted because of encephalopathy and altered mental status, but he came in from a half-way facility. He said he was hearing voices. He had superficial cuts on his left wrist . Today, he is calm and cooperative. Denies suicidal or homicidal ideation. He is able to contract for safety, and for that reason, he did not meet criteria for hold at this time. He has been in the hospital for a few days. . "I had . I won't hurt myself. I feel a lot better on my medication. I'm ready to go back to my facility." That was the chief complaint. MEDICAL HISTORY: The patient apparently has a history of GERD, superficial cuts on his wrist, hypothyroidism, and diabetes. ALLERGIES: He has allergies to penicillin. PSYCHOTROPIC MEDICATIONS ON ADMISSION: The patient is currently on a psychotropic medication regimen consisting of Seroquel at a dose of 300 mg daily and 400 mg nightly and Depakote 500 mg q.12 h. He is also on Ativan at a dose of 0.5 mg q.4 h. p.r.n. anxiety and agitation. PAIN ASSESSMENT: 0/10. SUBSTANCE ABUSE HISTORY: He denies use of any drug or alcohol use. FAMILY PSYCHIATRIC HISTORY: . SOCIAL HISTORY: He is currently living in [facility]. Financially supported by [facility] and Medicare. PSYCHIATRIC HISTORY: The patient has multiple psychiatric admissions in the past with diagnosis of schizoaffective, bipolar type. STRENGTHS: He is motivated to get better and he has a place to live. WEAKNESSES: He is impulsive and minimal support system. MENTAL STATUS EXAMINATION: This is a 44-year-old male patient. This patient's appearance is disheveled. Attitude, irritable and agitated. Affect, guarded and restricted. Intellect poor because he does not know current events. He does not know the last four Presidents. Mood, depressed and anxious. Motor activity, psychomotor agitation. Attention span is poor because he cannot do serial sevens or spell world backwards. He is oriented to person and place, not to time or situation. Speech is pressured and hyperverbal. Thought content, he does endorse intermittent auditory hallucinations and paranoid delusions. Perception is poor because he has paranoid delusions and auditory hallucinations. Abstract reasoning is poor because he does not understand proverbs, only has concrete thinking. Insight is poor, he does not recognize having psych disorder. Judgment is poor because he does not accept consequences of his actions. He denies suicidal or homicidal ideations. Short-term memory 3/3 word recall after 5 minutes delay with good short-term memory. Long-term memory is intact based on his knowledge of long-term events in his life such as high school that he went to. Gait is normal. He has no abnormal movements. There is no history of . DIAGNOSES: PRIMARY: Schizoaffective, bipolar type. MEDICAL: Diabetes, hypothyroidism, and obesity. PSYCHOSOCIAL STRESSORS: Financial. Functional impairment is mild. PLAN: Continue on Seroquel 300 mg q.a.m. and 400 mg nightly and Depakote 500 mg q.12 h. Twenty minutes of cognitive behavioral therapy provided to help him identify his automatic negative thoughts, help him convert his negative thoughts to more positive thoughts to reduce depression, anxiety, mood lability and help him have more adaptive behavioral pattern. Had 20 minutes of cognitive behavioral therapy. Chart was reviewed. Discussed with staff. Seen and assessed at the bedside. Psychiatrically cleared for discharge. Ángela Neumann M.D. DR: LEVY JOB#: [id number] CC:
--- NOTE | 2019-06-27 19:14 | NUR ---
HAND-OFF: Report given to THUY Larson.
--- NOTE | 2019-06-27 20:00 | NUR ---
NURSE NOTES: Patient received in bed, aaox4, no distress, aware and awaiting for DC/ambulance. Will continue POC.
[2019-06-27] MEDS: QUEtiapine 200mg tab ORAL SCH (20:18)
--- NOTE | 2019-06-27 21:00 | NUR ---
NURSE NOTES: Patient discharged to [facility] in stable condition via gurney. No IV line and ID band removed. Patietn left with all belongings. VSS. Remained free from injury.
--- NOTE | 2019-06-28 03:45 | Progress Note ---
DATE: 06/27/2019 PSYCHOTHERAPY CONSULTATION PROGRESS NOTE TREATING ATTENDING PHYSICIAN: Sang Verdin D.O. HISTORY OF PRESENT ILLNESS: This is a 44-year-old male patient. The patient is from [facility]. Apparently, the patient was brought to the hospital for encephalopathy. For this reason, he was referred for psychotherapeutic services. When this clinician assessed the patient at this time, the patient is alert and awake and able to communicate with the clinician. Denies suicidal or homicidal thoughts of ideation. Denies any auditory or visual hallucinations. The patient states that he became agitated because he wants to go back to his nursing facility and that is the only reason he became upset. At this time, he states that he will be able to participate in treatment. He states that he will be able to remain safe. Denies any thoughts of harming himself. He is clear and coherent and able to communicate at this time. He is alert and oriented to person, place, time, and situation. At this time, the patient's one-to-one sitter is discontinued. The patient is cleared by psychiatrist team to be discharged from the hospital. PAST MEDICAL HISTORY: Includes a history of hypertension, diabetes, hypothyroidism, disorder. SOCIAL HISTORY: The patient is a 44-year-old single male patient from [facility] . SUBSTANCE ABUSE HISTORY: The patient at this time denies a history of alcohol use, illicit drug use, or smoking cigarettes. PSYCHIATRIC HISTORY: The patient does have a history of possible and depression. MENTAL STATUS EXAMINATION: The patient is alert and oriented to person, place, time, and situation. Mood is anxious. Affect is blunted. Thought process, oriented. Thought content, linear. Poor attention and concentration. Poor insight, judgment, and impulse control. DIAGNOSIS: Generalized anxiety disorder. THIS CLINICIAN ASSESSED THIS PATIENT AND PROVIDED THE PATIENT WITH: 1. Reality orientation, which is focused on improving the cognitive function of the patient who is confused and disorganized. Oriented to place, person, time, and situation. The patient is oriented at this time fully. 2. Provided the patient with supportive psychotherapy, which would provide the patient with emotional outlet and means to cope with his emotional distress and to identify the patient's anxiety and his agitation earlier and exploring possible coping skills to . Plan is to maintain medication compliance with positive coping skills and possible . Psychotherapy provided to this patient is 20 minutes. The patient is now cleared by the team to be able to be discharged to half-way facility and to discontinue one-to-one sitter at this time. Juan Francisco Sy PsyD. DR: BELA JOB#: [id number] CC:
--- NOTE | 2019-06-28 08:35 | Discharge Summary ---
Discharge Summary Discharge Summary _ DATE OF ADMISSION: 06/23/2019 DATE OF DISCHARGE: 06/27/2019 DISCHARGED BY: Dr Verdin REASON FOR ADMISSION: 44 years old male with past medical history of GERD, hypertension, diabetes mellitus, gastritis, seizure disorder, bipolar disorder, anxiety, was brought from the [facility] facility for behavioral evaluation. Patient was not on his medications for the last few days. Patient reported hearing voices. Patient had prior history of suicidal attempt. Patient had had superficial cuts in his left wrist. Lizbeth received Tetanus booster in ED, He denied however suicidal ideation or homicidal ideation. Laboratory work-up revealed no leukocytosis , stable hemoglobin and hematocrit. Stable electrolytes and renal parameters. Glucose 93. Depakote level was 46 , slightly below therapeutic . Urine toxicology screen was negative. Serum salicylate , Tylenol, and alcohol were all negative. Patient required psychiatric evaluation and was admitted to the hospital. CONSULTANTS: pulmonary/critical care Dr. Cabrera psychiatrist Dr. Neumann [facility] COURSE: Patient admitted to medical surgical floor. Psychiatrist evaluated patient and diagnosed him with schizoaffective disorder bipolar type. Psychiatric medication regimen was provided with Seroquel and Depakote. Cognitive behavioral therapy provided to help him convert his negative thoughts to more positive thoughts, to reduce depression , anxiety, mood lability, and help with more adaptive behavioral pattern. Blood sugar was managed with sliding scale of insulin. Seizure precaution maintained. Depakote continued. No evidence of seizure activity while in the hospital. Bacitracin ointment applied to superficial cuts to the left wrist. Potassium was replaced. Synthroid was continued. Venous duplex bilateral lower extremity revealed no evidence of acute DVT. Bowel regimen instituted. Supportive care provided. Patient clinically stabilized , behavior controlled. Patient was ready for transfer back to [facility] facility for continuation of care. FINAL DIAGNOSES: Suicide gesture History of suicide attempt Multiply superficial cuts to left wrist Seizure disorder Hypothyroidism Diabetes mellitus DISCHARGE MEDICATIONS: See Medication Reconciliation list. DISCHARGE INSTRUCTIONS: Patient was discharged to the [facility] facility. Follow up with medical doctor at the facility. I have been assigned to dictate discharge summary for this account. I was not involved in the patient's management. Evelyne Verdin NP Jun 28, 2019 08:35
--- NOTE | 2019-06-28 08:58 | Diagnostic Imaging Report ---
APPROVED REPORT CPT Code: 66173 Present Symptoms Lower Extremity Edema: Bilateral BILATERAL: Imaging reveals a patent deep venous system bilaterally. There is no evidence of thrombus within the femoral, popliteal or tibial segments. The greater saphenous veins are also within normal limits. Doppler indicates normal spontaneous flow within these segments.
== END 2019-06-27 21:00 | DRG 885 ==
LOC: EDBD 13:07 → EMR 14:20 → 4E 18:55 → EDBEDREQ 19:30
DX: F25.0 Schizoaffective disorder, bipolar type (principal); R45.851 Suicidal ideations; Z68.43 Body mass index [BMI] 50.0-59.9, adult; G93.40 Encephalopathy, unspecified; E11.9 Type 2 diabetes mellitus without complications; E03.9 Hypothyroidism, unspecified; Z91.5 Personal history of self-harm; E66.01 Morbid (severe) obesity due to excess calories; Z88.0 Allergy status to penicillin; G40.909 Epilepsy, unspecified, not intractable, without status epilepticus; K21.9 Gastro-esophageal reflux disease without esophagitis; F41.9 Anxiety disorder, unspecified; X78.9XXD Intentional self-harm by unspecified sharp object, subsequent encounter; Z91.14 Patient's other noncompliance with medication regimen; E87.6 Hypokalemia
CPT/HCPCS: 36415; 80053; 80061; 80164; 80307; 80329; 82962; 84443; 85025; 87081; 90471; 90715; 93970; 99285; J1815; J8499

== ENCOUNTER 2019-07-02 16:17 | Emergency (ER) | payer MEDICAID, MEDICARE ==
[~2019-07-02] VITALS: Ht 177.8 cm; Wt 171.9 kg
[~2019-07-02 16:17] MED LIST: ACETAMINOPHEN325 M1 ORAL; AMBIEN5 MG ORAL; ATIVAN0.5 MG ORAL; ATIVAN1 MG ORAL; ENALAPRIL MALEAT5 MG ORAL; LEVOTHYROXINE125 MCG ORAL; LIPITOR20 MG ORAL; MIRALAX17 G2 ORAL; MORPHINE S10 MG/5 ML ORAL; NOVOLOG100 UNIT/5 SQ; PROPRANOLOL HCL10 MG ORAL; SEROQUEL100 MG ORAL; SEROQUEL200 MG ORAL; SPIRONOLACTONE50 MG ORAL; VALPROIC ACID250 MG PO
--- NOTE | 2019-07-02 16:20 | NUR ---
ED Nurse Note: Patient brought from [facility] by RA due to fever at the facility. Afebrile, Temp 98.9 at ER. He has BLL redness, non pitting edema, warm to touch. Bandage was applied on BLL at the facility. Alert and oriented x4, verbally responsive. Breathing even and unlabored. Vital signs stable at this sign.
--- NOTE | 2019-07-02 16:44 | Emergency Room Report ---
History of Present Illness General Chief Complaint: Fever Source: Patient Present Illness HPI Disclaimer: Please note that this report is being documented using [employer] technology. This can lead to erroneous entry secondary to incorrect interpretation by the dictating instrument. HPI: 44-year-old male with history of hypertension, diabetes, obesity, bipolar disorder, schizophrenia, seizure disorder sent in from assisted living facility for evaluation of lower extremity wounds, fever and vomiting. Patient states that due to the edema in his leg he often gets sores or blisters. He has had 2 painful blisters over the shins for several weeks, the left whalen being open and draining. He has been covering it with bandages and keeping it clean. Last night he had several episodes of emesis and has been feeling sweats and chills intermittently. He denies any cough, sore throat, nasal congestion, chest pain , wheezing, abdominal pain, diarrhea or dysuria. He was sent over by his living facility for evaluation of fevers. Has been getting NSAIDs for pain PMH: Hypertension, hyperlipidemia, GERD, diabetes, obesity, schizophrenia, bipolar disorder PSH: None Allergies: Penicillin Social Hx: Denies tobacco or alcohol abuse Allergies: Coded Allergies: PENICILLINS (Verified Allergy, Unknown, 06/23/19) Uncoded Allergies: PCN (Allergy, Unknown, 07/02/19) Nursing Documentation-PMH Past Medical History: No History, Except For Hx Cardiac Problems: No - muscle weakness, epilepsy, HLD Hx Hypertension: Yes Hx Diabetes: Yes Hx Cancer: No Hx Gastrointestinal Problems: No History Of Psychiatric Problem: Yes - Schizophrenia Hx Neurological Problems: Yes Hx Seizures: Yes Hx Epilepsy: Yes Review of Systems All Other Systems: negative except mentioned in HPI Physical Exam Vital Signs Date Time Temp Pulse Resp B/P (MAP) Pulse Ox O2 Delivery O2 Flow Rate FiO2 07/02/19 16:12 98.1 97 12 98/64 (75) 92 Room Air General: Awake and alert, no acute distress, afebrile HEENT: NC/AT. EOMI. Neck: Supple, trachea midline Chest Wall: No tenderness, no deformity Cardiovascular: RRR. S1 and S2 normal. No murmur appreciated Resp: Normal work of breathing. No cough, wheezing or crackles appreciated Abdomen: Abdomen is soft, obese, nondistended. Nontender Skin: I none ruptured bulla over the anterior whalen on the right leg. No tenderness palpation. There are superficial erosions of the skin from ruptured blisters over the left whalen with mild surrounding erythema. Warm to touch. No purulent drainage though they are weeping. MSK: Normal tone and bulk. Moving all extremities. No obvious deformity. Neuro: Awake and alert. Mentating appropriately. Medical Decision Making ER Course 44-year-old male presents for evaluation of lower extreme any wounds fevers and vomiting. Vital signs are stable on arrival and he is afebrile. He does have ruptured bullae over the left whalen with mild surrounding erythema that is tender and warm to palpation concerning for possible cellulitis. In the light of his emesis and reported fevers will perform a septic work-up. He will get IV fluids. Check labs to determine disposition. Laboratory Tests Test 07/02/19 16:45 07/02/19 17:36 White Blood Count 8.2 K/UL (4.8-10.8) Red Blood Count 4.90 M/UL (4.70-6.10) Hemoglobin 13.6 G/DL (14.2-18.0) L Hematocrit 40.5 % (42.0-52.0) L Mean Corpuscular Volume 83 FL (80-99) Mean Corpuscular Hemoglobin 27.8 PG (27.0-31.0) Mean Corpuscular Hemoglobin Concent 33.6 G/DL (32.0-36.0) Red Cell Distribution Width 12.1 % (11.6-14.8) Platelet Count 215 K/UL (150-450) Mean Platelet Volume 7.8 FL (6.5-10.1) Neutrophils (%) (Auto) 69.4 % (45.0-75.0) Lymphocytes (%) (Auto) 16.2 % (20.0-45.0) L Monocytes (%) (Auto) 10.1 % (1.0-10.0) H Eosinophils (%) (Auto) 3.5 % (0.0-3.0) H Basophils (%) (Auto) 0.8 % (0.0-2.0) Sodium Level 137 MMOL/L (136-145) Potassium Level 4.5 MMOL/L (3.5-5.1) Chloride Level 102 MMOL/L (98-107) Carbon Dioxide Level 29 MMOL/L (21-32) Anion Gap 6 mmol/L (5-15) Blood Urea Nitrogen 11 mg/dL (7-18) Creatinine 0.8 MG/DL (0.55-1.30) Estimat Glomerular Filtration Rate > 60 mL/min (>60) Glucose Level 92 MG/DL (74-106) Lactic Acid Level 1.30 mmol/L (0.4-2.0) Calcium Level 9.0 MG/DL (8.5-10.1) Total Bilirubin 0.3 MG/DL (0.2-1.0) Aspartate Amino Transf (AST/SGOT) 22 U/L (15-37) Alanine Aminotransferase (ALT/SGPT) 13 U/L (12-78) Alkaline Phosphatase 86 U/L (46-116) Total Creatine Kinase 163 U/L (26-308) Creatine Kinase MB 1.9 NG/ML (0.0-3.6) Creatine Kinase MB Relative Index 1.1 Troponin I 0.001 ng/mL (0.000-0.056) Total Protein 6.5 G/DL (6.4-8.2) Albumin 2.6 G/DL (3.4-5.0) L Globulin 3.9 g/dL Albumin/Globulin Ratio 0.7 (1.0-2.7) L Urine Color Yellow Urine Appearance Slightly cloudy Urine pH 7 (4.5-8.0) Urine Specific [place] 1.020 (1.005-1.035) Urine Protein Negative (NEGATIVE) Urine Glucose (UA) Negative (NEGATIVE) Urine Ketones 1+ (NEGATIVE) H Urine Blood Negative (NEGATIVE) Urine Nitrite Negative (NEGATIVE) Urine Bilirubin Negative (NEGATIVE) Urine Urobilinogen 1 MG/DL (0.0-1.0) H Urine Leukocyte Esterase 1+ (NEGATIVE) H Urine RBC 0-2 /HPF (0 - 0) H Urine WBC 5-10 /HPF (0 - 0) H Urine Squamous Epithelial Cells Moderate /LPF (NONE/OCC) H Urine Bacteria Few /HPF (NONE) Reevaluation Time: 18:36 Last Vital Signs Date Time Temp Pulse Resp B/P (MAP) Pulse Ox O2 Delivery O2 Flow Rate FiO2 07/02/19 16:12 98.1 97 12 98/64 (75) 92 Room Air Reevaluation Impression Labs have returned largely within normal limits. No significant white count, no shift, lactate normal and electrolytes otherwise unremarkable. Patient be treated with topical bacitracin ointment and Keflex for presumed cellulitis he will follow-up with his PMD. Discussed reasons to return to the emergency department with patient. He understands and agrees with this treatment plan will be discharged back to his assisted living facility. Disposition: HOME, SELF-CARE Condition: Stable Scripts Cephalexin* (KEFLEX*) 500 Mg Capsule 500 MG ORAL EVERY 12 HOURS, #14 CAP 0 Refills Prov: Jack Sanchez MD 07/02/19 Bacitracin (Bacitracin) 28.4 Gm Oint...g. 1 APPLIC TOPIC THREE TIMES A DAY for 5 Days, #30 GM Prov: Jack Sanchez MD 07/02/19 Jack Sanchez MD Jul 02, 2019 16:44
[2019-07-02 16:56] VITALS: BP 103/61
[2019-07-02 17:09] LABS: BASOPHILS % (AUTO) 0.8 % (0.0-2.0); EOSINOPHILS % (AUTO) 3.5 % (0.0-3.0); HEMATOCRIT 40.5 % (42.0-52.0); HEMOGLOBIN 13.6 G/DL (14.2-18.0); LYMPHOCYTES % (AUTO) 16.2 % (20.0-45.0); MEAN CORPUSCULAR VOLUME 83 FL (80-99); MONOCYTES % (AUTO) 10.1 % (1.0-10.0); NEUTROPHILS % (AUTO) 69.4 % (45.0-75.0); PLATELET COUNT 215 K/UL (150-450); RED CELL DISTRIBUTION WIDTH 12.1 % (11.6-14.8); WHITE BLOOD COUNT 8.2 K/UL (4.8-10.8)
[2019-07-02 17:20] LABS: ANION GAP 6 mmol/L (5-15); BLOOD UREA NITROGEN 11 mg/dL (7-18); CARBON DIOXIDE 29 MMOL/L (21-32); CHLORIDE 102 MMOL/L (98-107); CREATININE 0.8 MG/DL (0.55-1.30); POTASSIUM 4.5 MMOL/L (3.5-5.1); SODIUM 137 MMOL/L (136-145)
[2019-07-02 17:38] LABS: ALANINE AMINOTRANSFERASE 13 U/L (12-78); ALBUMIN 2.6 G/DL (3.4-5.0); ALBUMIN/GLOBULIN RATIO 0.7 (1.0-2.7); ALKALINE PHOSPHATASE 86 U/L (46-116); ASPARTATE AMINO TRANSFERASE 22 U/L (15-37); BILIRUBIN,TOTAL 0.3 MG/DL (0.2-1.0); CKMB 1.9 NG/ML (0.0-3.6); CREATINE KINASE 163 U/L (26-308)
--- NOTE | 2019-07-02 17:42 | NUR ---
ED Nurse Note: Patient walked to the restroom with steady gait. Urine collected and was sent to the lab. No SOB. No signs of any distress. Will cont to monitor.
[2019-07-02 17:54] LABS: APPEARANCE,URINE SLIGHTLY CLOUDY; BILIRUBIN, URINE NEGATIVE (NEGATIVE); COLOR,URINE YELLOW; GLUCOSE, URINE (UA) NEGATIVE (NEGATIVE); KETONES,URINE 1+ (NEGATIVE); LEUKOCYTE ESTERASE ,URINE 1+ (NEGATIVE); NITRITE,URINE NEGATIVE (NEGATIVE); PH,URINE 7 (4.5-8.0); PROTEIN,URINE NEGATIVE (NEGATIVE); UROBILINOGEN,URINE 1 MG/DL (0.0-1.0)
[2019-07-02 18:35] VITALS: BP 104/76
[2019-07-02] MEDS ORDERED: CEPHALEXIN500 MG ORAL (18:36)
[2019-07-02] MEDS ORDERED: BACITRACIN15 GM TOPIC (18:36)
--- NOTE | 2019-07-02 18:52 | NUR ---
Spoke with Lali at [facility], aware of patient going back home by ambulance. Spoke with Nathanael at [facility]- [id number].
--- NOTE | 2019-07-02 19:00 | NUR ---
ED Nurse Note: Awaiting for transportation to arrive. No sign of acute distress.
--- NOTE | 2019-07-02 19:00 | NUR ---
HAND-OFF: Report given to THUY Keith.
--- NOTE | 2019-07-02 19:15 | NUR ---
ED Nurse Note: Recieved reprot from am nurse to resume care, pt in bed awake, alert and oriented x 4, pt waiting to be discharged back to SNF, waiting for transport, pt denies pain, no sob or labored breathing, pt hungry and ask for food, given sandwich and juice, will continue to closely monitor while waiting for transportation.
[2019-07-02 20:15] VITALS: BP 102/79
--- NOTE | 2019-07-02 20:15 | NUR ---
ER DISCHARGE NOTE: Patient is cleared to be discharged per ERMD, pt is aox4, on room air, with stable vital signs. pt was given dc and prescription instructions, pt was able to verbalize understanding, pt id band and iv site removed without complications. pt is able to ambulate with steady gait. pt took all belongings.
== END 2019-07-02 20:15 | disposition home or self-care (01) ==
LOC: EDBD 16:17 → EMR 16:53
DX: R50.9 Fever, unspecified (principal); R11.10 Vomiting, unspecified; S80.822A Blister (nonthermal), left lower leg, initial encounter; X58.XXXA Exposure to other specified factors, initial encounter; Y92.9 Unspecified place or not applicable; Z88.0 Allergy status to penicillin; F20.9 Schizophrenia, unspecified; G40.909 Epilepsy, unspecified, not intractable, without status epilepticus; E78.5 Hyperlipidemia, unspecified; I10 Essential (primary) hypertension; E11.9 Type 2 diabetes mellitus without complications
CPT/HCPCS: 36415; 80053; 81003; 82550; 82553; 83605; 84484; 85025; 87040; 99283

== ENCOUNTER 2019-07-09 09:39 | Inpatient (IN) | payer MEDICARE, MEDICAID ==
[~2019-07-09] VITALS: Ht 172.7 cm; Wt 99.8 kg
[~2019-07-09 09:39] MED LIST changes: +BACITRACIN15 GM TOPIC; +CEPHALEXIN500 MG ORAL
[2019-07-09] MEDS ORDERED: HUMALOG100 UNIT/4 SUBQ (09:49)
[2019-07-09] MEDS ORDERED: COLACE100 MG ORAL (09:49)
[2019-07-09] MEDS ORDERED: TRAMADOL HCL50 MG ORAL (09:49)
--- NOTE | 2019-07-09 09:53 | Emergency Room Report ---
History of Present Illness General Chief Complaint: Skin Rash/Abscess Source: Patient, Medical Record Present Illness HPI Disclaimer: Please note that this report is being documented using [employer] technology. This can lead to erroneous entry secondary to incorrect interpretation by the dictating instrument. HPI: 44-year-old male with a history of hypertension, diabetes mellitus, gastritis, seizure disorder, bipolar disorder, anxiety, GERD was brought from the senior living facility for evaluation of lower leg pain and cellulitis. He was seen in the emergency department by me last week complaining of similar symptoms and discharged home with Keflex and bacitracin cream for superficial cellulitis. Appears that his leg pain and swelling have become worse. He notes subjective fevers but also complaining of worsening of his chronic cough. He denies phlegm production or fever he does feel diaphoretic at times. Complaining of worsening edema tracking up from the lower extremities past his knees now. Sent in for evaluation by his PMD. He denies any vomiting, diarrhea , dysuria, headaches, lightheadedness, sore throats. PMH: Diabetes, gastritis, hypertension, seizure disorder, bipolar disorder, GERD , anxiety PSH: See chart Allergies: Allergy to penicillin Social Hx: Denies alcohol or drug abuse Allergies: Coded Allergies: PENICILLINS (Verified Allergy, Unknown, 06/23/19) Nursing Documentation-PMH Past Medical History: No History, Except For Hx Cardiac Problems: No - muscle weakness, epilepsy, HLD Hx Hypertension: Yes Hx Diabetes: Yes Hx Cancer: No Hx Gastrointestinal Problems: No Hx Neurological Problems: Yes Hx Seizures: Yes Hx Epilepsy: Yes Review of Systems All Other Systems: negative except mentioned in HPI Physical Exam Vital Signs Date Time Temp Pulse Resp B/P (MAP) Pulse Ox O2 Delivery O2 Flow Rate FiO2 07/09/19 09:40 97.5 83 16 118/72 (87) 95 Room Air General: Awake and alert, no acute distress HEENT: NC/AT. EOMI. Neck: Supple, trachea midline Chest Wall: No tenderness, no deformity Cardiovascular: RRR. S1 and S2 normal. No murmur appreciated Resp: Normal work of breathing. No cough, wheezing or crackles appreciated Abdomen: Abdomen is soft, nondistended, morbidly obese. Nontender Skin: I significant warmth to palpation, tenderness and superficial ulcerations in unroofed blisters over the shins bilaterally. No purulent drainage. MSK: 3+ lower extremity pitting edema up to the knees bilaterally Neuro: Awake and alert. Mentating appropriately. Medical Decision Making Diagnostic Impression: Primary Impression: Cellulitis ER Course 44-year-old male returns after failure of outpatient antibiotic treatment for treatment of lower extremity edema and cellulitis. Will repeat labs in addition to obtaining an EKG, chest x-ray, cardiac labs given his intermittent episodes of chest pain and worsening cough. Is likely to his chest pain is musculoskeletal given his increased coughing will obtain EKG and cardiac enzymes to rule out ACS or other causes. Patient will require admission for outpatient failure of antibiotics. We will draw blood cultures and give 600 mg IV clindamycin. Laboratory Tests Test 07/09/19 09:50 White Blood Count 7.4 K/UL (4.8-10.8) Red Blood Count 4.96 M/UL (4.70-6.10) Hemoglobin 14.1 G/DL (14.2-18.0) L Hematocrit 42.8 % (42.0-52.0) Mean Corpuscular Volume 86 FL (80-99) Mean Corpuscular Hemoglobin 28.3 PG (27.0-31.0) Mean Corpuscular Hemoglobin Concent 32.8 G/DL (32.0-36.0) Red Cell Distribution Width 13.3 % (11.6-14.8) Platelet Count 215 K/UL (150-450) Mean Platelet Volume 7.6 FL (6.5-10.1) Neutrophils (%) (Auto) 69.1 % (45.0-75.0) Lymphocytes (%) (Auto) 16.1 % (20.0-45.0) L Monocytes (%) (Auto) 9.4 % (1.0-10.0) Eosinophils (%) (Auto) 4.8 % (0.0-3.0) H Basophils (%) (Auto) 0.6 % (0.0-2.0) Sodium Level 139 MMOL/L (136-145) Potassium Level 3.8 MMOL/L (3.5-5.1) Chloride Level 101 MMOL/L (98-107) Carbon Dioxide Level 30 MMOL/L (21-32) Anion Gap 8 mmol/L (5-15) Blood Urea Nitrogen 14 mg/dL (7-18) Creatinine 0.9 MG/DL (0.55-1.30) Estimat Glomerular Filtration Rate > 60 mL/min (>60) Glucose Level 101 MG/DL (74-106) Lactic Acid Level 0.70 mmol/L (0.4-2.0) Calcium Level 8.5 MG/DL (8.5-10.1) Total Bilirubin 0.3 MG/DL (0.2-1.0) Aspartate Amino Transf (AST/SGOT) 14 U/L (15-37) L Alanine Aminotransferase (ALT/SGPT) 14 U/L (12-78) Alkaline Phosphatase 90 U/L (46-116) Troponin I 0.000 ng/mL (0.000-0.056) Pro-B-Type Natriuretic Peptide 40 pg/mL (0-125) Total Protein 7.0 G/DL (6.4-8.2) Albumin 2.5 G/DL (3.4-5.0) L Globulin 4.5 g/dL Albumin/Globulin Ratio 0.6 (1.0-2.7) L EKG Diagnostic Results EKG Time: 09:56 Rate: normal Rhythm: NSR ST Segments: no acute changes Other Impression Right axis deviation. No ST segment changes. Rhythm Strip Diag. Results Rhythm Strip Time: 09:56 EP Interpretation: yes Rate: 70s Rhythm: NSR Chest X-Ray Diagnostic Results Chest X-Ray Diagnostic Results : # of Views/Limited/Complete: 1 View Indication: Chest Pain EP Interpretation: Yes Interpretation: no consolidation, no effusion Impression: Other - Mild vascular congestion without obvious consolidation Electronically Signed by: Electronically signed by Dr. Jack Sanchez Reevaluation Time: 11:00 Last Vital Signs Date Time Temp Pulse Resp B/P (MAP) Pulse Ox O2 Delivery O2 Flow Rate FiO2 07/09/19 09:40 97.5 83 16 118/72 (87) 95 Room Air Reevaluation Impression Labs show normal white count, no anemia, normal renal function, lactate of 0.7, negative troponin. She EKG shows no ischemic changes and chest x-ray shows some mild vascular congestion but no obvious consolidation. He will be admitted for IV antibiotics for treatment of lower extremity cellulitis. Disposition: ADMITTED INPATIENT Condition: Serious Jack Sanchez MD Jul 09, 2019 09:53
--- NOTE | 2019-07-09 09:58 | NUR ---
ED Nurse Note: PT BROUGHT IN BY AMBULANCE FROM [facility]. AOX4. PT C/O BILATERAL LOWER EXTREMITY PAIN, 10/10 X A FEW DAYS AGO. STEADY GAIT IN ER. PT PRESENTS WITH WARMTH, REDNESS, AND 1+ PITTING EDEMA TO BILATERAL LOWER EXTREMITIES. CIRCULATION AND SENSATION INTACT, NO BLEEDING OR DRAINAGE NOTED, FULL ROM OF EXTREMITIES AND DIGITS.
[2019-07-09] MEDS ORDERED: Clindamycin 600mg 50 ML IVPB ONE (10:00)
--- NOTE | 2019-07-09 10:00 | NUR ---
ED Nurse Note: PHOTOS OF LEGS TAKEN AND UPLOADED TO PT'S EMR.
[2019-07-09 10:01] VITALS: BP 140/85
--- NOTE | 2019-07-09 10:05 | NUR ---
ED Nurse Note: XRAY AT BEDSIDE.
--- NOTE | 2019-07-09 10:29 | Diagnostic Imaging Report ---
EXAM: XR Chest, 1 View CLINICAL HISTORY: COUGH TECHNIQUE: Frontal view of the chest. COMPARISON: No relevant prior studies available. FINDINGS: Lungs: Reduced lung volumes with accentuation of markings. Mild left basilar atelectasis/pneumonitis. No confluent airspace disease. Pleural space: Unremarkable. No pneumothorax. Heart: Probably borderline Cardiomegaly. Mediastinum: Unremarkable. Bones/joints: No acute fracture. IMPRESSION: Reduced lung volumes with accentuation of markings. Mild left basilar atelectasis/pneumonitis. No confluent airspace disease.
[2019-07-09 10:43] LABS: BASOPHILS % (AUTO) 0.6 % (0.0-2.0); EOSINOPHILS % (AUTO) 4.8 % (0.0-3.0); HEMATOCRIT 42.8 % (42.0-52.0); HEMOGLOBIN 14.1 G/DL (14.2-18.0); LYMPHOCYTES % (AUTO) 16.1 % (20.0-45.0); MEAN CORPUSCULAR VOLUME 86 FL (80-99); MONOCYTES % (AUTO) 9.4 % (1.0-10.0); NEUTROPHILS % (AUTO) 69.1 % (45.0-75.0); PLATELET COUNT 215 K/UL (150-450); RED BLOOD COUNT 4.96 M/UL (4.70-6.10); RED CELL DISTRIBUTION WIDTH 13.3 % (11.6-14.8); WHITE BLOOD COUNT 7.4 K/UL (4.8-10.8)
--- NOTE | 2019-07-09 10:55 | NUR ---
ED Nurse Note: PT REFUSED CRE/VRE SWAB. MRSA SWAB SENT TO LAB.
[2019-07-09 11:08] LABS: ANION GAP 8 mmol/L (5-15); BLOOD UREA NITROGEN 14 mg/dL (7-18); CALCIUM 8.5 MG/DL (8.5-10.1); CARBON DIOXIDE 30 MMOL/L (21-32); CHLORIDE 101 MMOL/L (98-107); CREATININE 0.9 MG/DL (0.55-1.30); POTASSIUM 3.8 MMOL/L (3.5-5.1); SODIUM 139 MMOL/L (136-145)
[2019-07-09 11:19] LABS: ALANINE AMINOTRANSFERASE 14 U/L (12-78); ALBUMIN 2.5 G/DL (3.4-5.0); ALBUMIN/GLOBULIN RATIO 0.6 (1.0-2.7); ALKALINE PHOSPHATASE 90 U/L (46-116); ASPARTATE AMINO TRANSFERASE 14 U/L (15-37); BILIRUBIN,TOTAL 0.3 MG/DL (0.2-1.0)
--- NOTE | 2019-07-09 12:29 | NUR ---
ED Nurse Note: [facility] CALLED FOR PT REPORT. REPORT GIVEN TO THUY ANDERSON. PT TAKEN UP TO [facility] VIA GURNEY WITH ALL BELONGINGS ACCOMPANIED BY EMT. VSS.
--- NOTE | 2019-07-09 12:45 | NUR ---
CHARGE NURSE NOTE: Received patient from ER in stable condition. Belongings checked. Pt is diabetic, overweight. BLE cellulitis with none pitting edema, legs swollen warm to touch, redness and some exudate noticed. BLE pain level 8/10. was called for admission orders.
--- NOTE | 2019-07-09 12:50 | NUR ---
NURSE NOTES: RECEIVED PATIENT A/A/OX3/4 WITH CELLULITIS BLE, PERSONAL BELONGINGS REVIEWED S/T/D. PHOTO TAKEN ON BLE AND UPLOADED. IV ACCESS PATENT AND INTACT. SIDERAILS ARE PADDED SEC TO SEIZURE DISORDER. NO C/O PAIN/DISCOMFORT NOTED. NO APPARENT DISTRESS NOTED. BED IS IN THE LOWEST POSITION. BED IS IN ALARM AND LOCK MODE. WILL CONT TO MONITOR
[2019-07-09 12:59] VITALS: BP 140/82
[2019-07-09] MEDS: Morphine Sulfate 2mg/ml Inj(IV/IM USE ONLY) IVP PRN ×2 (14:19→20:58)
[2019-07-09] MEDS ORDERED: Nitroglycerin Subl 0.4mg tab SL PRN (14:30)
[2019-07-09] MEDS ORDERED: Dextrose 50% 25ml Syringe IV PRN (14:30)
[2019-07-09] MEDS ORDERED: Albuterol/Ipratropium 3ml neb HHN PRN (14:30)
[2019-07-09] MEDS ORDERED: Miralax 17gm pkt ORAL PRN (14:30)
[2019-07-09] MEDS ORDERED: Morphine Sulfate 2mg/ml Inj(IV/IM USE ONLY) IVP PRN (14:30)
[2019-07-09] MEDS ORDERED: Vancomycin 2gm/D5W 550ml IVPB ONE ×2 (15:30)
[2019-07-09] MEDS: NovoLOG Insulin Flexpen SUBQ SCH ×2 (16:30→21:00)
--- NOTE | 2019-07-09 16:30 | NUR ---
CHARGE NURSE NOTE: Vanco IV was not delivered on time, given 1 hr later. Ioana notified.
[2019-07-09] MEDS ORDERED: Aztreonam 1gm/D5W 55ml IVPB SCH ×2 (18:00)
--- NOTE | 2019-07-09 18:07 | NUR ---
NURSE NOTES: Accdg to the patient he accidentally pulled out IV. Instructed if we can restart IV access. He said after he eat dinner. will reinforce. instructed patient to keep BLE elevated with pillows. patient shown bizarre, unpredictable behavior. Earlier today while Amna RIVAS was about to hang the vanco IVPB patient all of a sudden appeared upset and hysterical. He proceeded to take out his clothing from the drawer and attempted to elope. Somehow other staff were able to convince him and he calmed down and decided to stay. patient is not showing @ combativeness @ this time. will cont to monitor.
--- NOTE | 2019-07-09 18:32 | Diagnostic Imaging Report ---
US VENOUS BILATERAL LOWER EXTREMITIES: No DVT bilaterally. Limited visualization of the calf veins.
--- NOTE | 2019-07-09 18:46 | NUR ---
NURSE NOTES: attempted to restart IV and unsuccessful will relay to the next shift. will let MD know as well.
--- NOTE | 2019-07-09 18:56 | NUR ---
HAND-OFF: Report given to Anselmo Schwartz.
--- NOTE | 2019-07-09 19:30 | NUR ---
NURSE NOTES: Received report from OZZIE Black and rounds made with outgoing nurse. Received pt sitting up in bed, AOX4, c/o bilateral lower extremity and lower back pain. Will medicate pt as needed. No IV access noted. Will re-insert new IV. Bed in lowest position, side rails up x 2, call light within reach. Will continue to monitor.
[2019-07-09 20:00] VITALS: BP 133/70
[2019-07-09] MEDS ORDERED: Atorvastatin 20mg tab ORAL SCH (21:00)
[2019-07-09] MEDS ORDERED: Cefepime HCl 2 GM in D5W 110 ML IV SCH (21:00)
[2019-07-09] MEDS ORDERED: Heparin 5000 units/ml inj SUBQ SCH (21:00)
[2019-07-10] MEDS ORDERED: Vancomycin 1 GM in D5W 275 ML IVPB SCH ×2
--- NOTE | 2019-07-10 03:00 | NUR ---
NURSE NOTES: Pt pulled out both IV's left wrist and left AC. Pt states he had to go to the bathroom. Will reinsert new IV.
--- NOTE | 2019-07-10 04:47 | NUR ---
NURSE NOTES: Pt signed "AMA". Pt states "I'm out of here". Explained the risks and consequences of leaving AMA to patient. Pt still wish to leave the hospital. THUY Posey and Janet (nursing supervisor cold rolling) aware. Will notify Dr. Verdin. Addendum: 07/10/19 at 0514 by SELINA SO RN Pt is alert, oriented x 4 when he signed "AMA".
--- NOTE | 2019-07-10 04:54 | NUR ---
NURSE NOTES: Dr. Verdin notified that pt signed "AMA".
[2019-07-10] MEDS ORDERED: LORazepam 1mg tab ORAL PRN (05:15)
--- NOTE | 2019-07-10 05:22 | NUR ---
NURSE NOTES: Dr Ángela Neumann came to see pt, informed MD that pt signed AMA.
[2019-07-10] MEDS ORDERED: Enalapril 5mg tab ORAL SCH (09:00)
[2019-07-10] MEDS ORDERED: Lidocaine 1% Plain 30 ml INJ PRN (09:00)
[2019-07-10] MEDS ORDERED: Heparin1,000 units/500ml Premix(Conc:2 units/ml) IV PRN (09:00)
[2019-07-10] MEDS ORDERED: Dyna-Hex 2% Top Sol 2oz TOPIC SCH (20:00)
--- NOTE | 2019-07-11 12:03 | Discharge Summary ---
Discharge Summary Discharge Summary _ DATE OF ADMISSION: 07/09/2019 DATE OF DISCHARGE: 07/10/2019 Patient left AGAINST MEDICAL ADVICE REASON FOR ADMISSION: 44 years old male with past medical history of hypertension, diabetes mellitus, seizure disorder, bipolar disorder, GERD, anxiety, gastritis , presented to emergency department with complaint of lower leg pain. Patient apparently was seen in the emergency department last week and was discharged home on oral Keflex and bacitracin cream . However according to patient his leg pain and swelling got worse. Patient reported subjective fevers. Patient complained of chronic cough. Patient denied phlegm production , but reported being feeling diaphoretic at times. Patient also reported worsening edema of bilateral lower extremity. No vomiting, no diarrhea, no dysuria, no abdominal pain, no headache, no lightheadedness ,no sore throat. Upon evaluation vital signs were stable. Laboratory work-up revealed no leukocytosis , stable hemoglobin and hematocrit. Stable electrolytes and renal parameters. Glucose 101. Lactic acid 0.7. Stable LFT. Troponin negative. pro BNP 40. EKG revealed sinus rhythm, no acute ischemic changes. Chest x-ray revealed mild vascular congestion without obvious consolidation. Patient was admitted as inpatient for treatment of lower extremity cellulitis . HOSPITAL COURSE: Patient admitted to medical surgical floor. Patient started on empiric antibiotic. DVT prophylaxis provided. Pain management was addressed as needed. Blood sugar was managed with sliding scale of insulin. Home medication resumed. On solid waste technician 07/10 patient decided to leave AGAINST MEDICAL ADVICE. The risks and consequences of signing AGAINST MEDICAL ADVICE were discussed with patient in detail. Patient verbalized understanding, nevertheless signed AMA form and left. FINAL DIAGNOSES: Cellulitis bilateral lower extremity I have been assigned to dictate discharge summary for this account. I was not involved in the patient's management. Evelyne Verdin NP Jul 11, 2019 12:03
== END 2019-07-10 04:47 | disposition left against medical advice (07) | DRG 603 ==
LOC: EDBD 09:39 → EMR 09:46 → EDBEDREQ 12:12 → 3E 12:15
DX: L03.116 Cellulitis of left lower limb (principal); L03.115 Cellulitis of right lower limb; I10 Essential (primary) hypertension; E11.9 Type 2 diabetes mellitus without complications; G40.909 Epilepsy, unspecified, not intractable, without status epilepticus; F31.9 Bipolar disorder, unspecified; K21.9 Gastro-esophageal reflux disease without esophagitis; F41.9 Anxiety disorder, unspecified; K29.70 Gastritis, unspecified, without bleeding
CPT/HCPCS: 36415; 71045; 80053; 82550; 82553; 82962; 83605; 83690; 83880; 84484; 85025; 87040; 87081; 93005; 93970; 94664; 96365; 99285; J1815; S0077

== ENCOUNTER 2019-07-10 19:57 | Inpatient (IN) | payer MEDICARE, MEDICAID ==
[~2019-07-10] VITALS: Ht 180.3 cm; Wt 176.4 kg
[~2019-07-10 19:57] MED LIST changes: +COLACE100 MG ORAL; +HUMALOG100 UNIT/4 SUBQ; +TRAMADOL HCL50 MG ORAL
[2019-07-10 20:38] VITALS: BP 134/75
--- NOTE | 2019-07-10 20:38 | NUR ---
ED Nurse Note: pt walked in c/o BLE pain, pt reports he was in the hospital yesterday but left AMA and came back to ED. pt reports he stays at [facility] but was unable to go back to [facility]. noted BLE edema, swelling and redness with wound on left leg. will cont monitor.
--- NOTE | 2019-07-10 20:54 | Emergency Room Report ---
History of Present Illness General Chief Complaint: Skin Rash/Abscess Source: Patient Present Illness HPI Patient presents with complaints of continued worsening of redness and swelling in both of his legs patient was seen previously and left AGAINST MEDICAL ADVICE He reports now that the nursing facility will not Accept him back given the condition Denies any chest pain or shortness of breath he has continued Increased swelling of both legs increased discharge Denies any chest pain or shortness of breath denies any vomiting or diarrhea Denies any other recent fall or trauma Allergies: Coded Allergies: PENICILLINS (Verified Allergy, Unknown, 06/23/19) Patient History Past Medical History: see triage record Pertinent Family History: none Reviewed Nursing Documentation: PMH: Agreed; PSxH: Agreed Nursing Documentation-PMH Past Medical History: No History, Except For Hx Cardiac Problems: Yes Hx Hypertension: Yes Hx Diabetes: Yes Hx Cancer: No Hx Gastrointestinal Problems: Yes Hx Neurological Problems: Yes Hx Seizures: Yes Hx Epilepsy: Yes Review of Systems All Other Systems: negative except mentioned in HPI Physical Exam Vital Signs Date Time Temp Pulse Resp B/P (MAP) Pulse Ox O2 Delivery O2 Flow Rate FiO2 07/10/19 20:15 98.2 110 26 136/74 (94) 98 Room Air Sp02 EP Interpretation: reviewed, normal General Appearance: well appearing, no apparent distress Head: normocephalic, atraumatic Eyes: bilateral eye PERRL, bilateral eye EOMI ENT: hearing grossly normal, normal pharynx, TMs + canals normal, uvula midline Neck: full range of motion, supple, no meningismus, no bony tend Respiratory: lungs clear, normal breath sounds, no rhonchi, no respiratory distress, no retraction, no accessory muscle use Cardiovascular #1: normal peripheral pulses, regular rate, rhythm, no gallop, no JVD, no murmur Gastrointestinal: normal bowel sounds, non tender, soft, no mass, no organomegaly, non-distended, no guarding, no hernia, no pulsatile mass, no rebound Genitourinary: no CVA tenderness Musculoskeletal: swelling - And increased erythema bilaterally, pitting in nature, there are also several blister formations that have burst with secondary erythema Neurologic: oriented x3, responsive, manager animal III-XII nml as tested, motor strength/ tone normal, sensory intact Psychiatric: mood/affect normal Skin: other - As above Lymphatic: normal inspection Medical Decision Making Diagnostic Impression: Primary Impression: Cellulitis ER Course Patient is a complex appearing lesion bilateral legs has failed outpatient oral antibiotics At this time is willing to be admitted and stay And admitted for further inpatient care Labs Test 07/10/19 21:15 White Blood Count 8.3 K/UL (4.8-10.8) Red Blood Count 4.73 M/UL (4.70-6.10) Hemoglobin 13.2 G/DL (14.2-18.0) Hematocrit 38.8 % (42.0-52.0) Mean Corpuscular Volume 82 FL (80-99) Mean Corpuscular Hemoglobin 28.0 PG (27.0-31.0) Mean Corpuscular Hemoglobin Concent 34.1 G/DL (32.0-36.0) Red Cell Distribution Width 12.3 % (11.6-14.8) Platelet Count 237 K/UL (150-450) Mean Platelet Volume 6.9 FL (6.5-10.1) Neutrophils (%) (Auto) 79.1 % (45.0-75.0) Lymphocytes (%) (Auto) 10.0 % (20.0-45.0) Monocytes (%) (Auto) 8.9 % (1.0-10.0) Eosinophils (%) (Auto) 1.3 % (0.0-3.0) Basophils (%) (Auto) 0.7 % (0.0-2.0) Sodium Level 140 MMOL/L (136-145) Potassium Level 3.8 MMOL/L (3.5-5.1) Chloride Level 105 MMOL/L (98-107) Carbon Dioxide Level 32 MMOL/L (21-32) Anion Gap 3 mmol/L (5-15) Blood Urea Nitrogen 12 mg/dL (7-18) Creatinine 1.1 MG/DL (0.55-1.30) Estimat Glomerular Filtration Rate > 60 mL/min (>60) Glucose Level 93 MG/DL (74-106) Lactic Acid Level 1.60 mmol/L (0.4-2.0) Calcium Level 8.7 MG/DL (8.5-10.1) Total Bilirubin 0.3 MG/DL (0.2-1.0) Aspartate Amino Transf (AST/SGOT) 16 U/L (15-37) Alanine Aminotransferase (ALT/SGPT) 15 U/L (12-78) Alkaline Phosphatase 77 U/L (46-116) Total Creatine Kinase 214 U/L (26-308) Creatine Kinase MB 2.4 NG/ML (0.0-3.6) Creatine Kinase MB Relative Index 1.1 Pro-B-Type Natriuretic Peptide 67 pg/mL (0-125) Total Protein 6.8 G/DL (6.4-8.2) Albumin 2.6 G/DL (3.4-5.0) Globulin 4.2 g/dL Albumin/Globulin Ratio 0.6 (1.0-2.7) Lipase 125 U/L (73-393) Last Vital Signs Date Time Temp Pulse Resp B/P (MAP) Pulse Ox O2 Delivery O2 Flow Rate FiO2 07/10/19 20:15 98.2 110 26 136/74 (94) 98 Room Air Status: improved Disposition: ADMITTED INPATIENT Condition: Serious Devora Alvarez DO Jul 10, 2019 20:54
[2019-07-10 22:01] LABS: BASOPHILS % (AUTO) 0.7 % (0.0-2.0); EOSINOPHILS % (AUTO) 1.3 % (0.0-3.0); HEMATOCRIT 38.8 % (42.0-52.0); HEMOGLOBIN 13.2 G/DL (14.2-18.0); MEAN CORPUSCULAR VOLUME 82 FL (80-99); MONOCYTES % (AUTO) 8.9 % (1.0-10.0); NEUTROPHILS % (AUTO) 79.1 % (45.0-75.0); PLATELET COUNT 237 K/UL (150-450); RED BLOOD COUNT 4.73 M/UL (4.70-6.10); RED CELL DISTRIBUTION WIDTH 12.3 % (11.6-14.8); WHITE BLOOD COUNT 8.3 K/UL (4.8-10.8)
[2019-07-10 22:04] LABS: ANION GAP 3 mmol/L (5-15); BLOOD UREA NITROGEN 12 mg/dL (7-18); CALCIUM 8.7 MG/DL (8.5-10.1); CARBON DIOXIDE 32 MMOL/L (21-32); CHLORIDE 105 MMOL/L (98-107); CREATININE 1.1 MG/DL (0.55-1.30); POTASSIUM 3.8 MMOL/L (3.5-5.1); SODIUM 140 MMOL/L (136-145)
[2019-07-10 22:17] LABS: ALANINE AMINOTRANSFERASE 15 U/L (12-78); ALBUMIN 2.6 G/DL (3.4-5.0); ALBUMIN/GLOBULIN RATIO 0.6 (1.0-2.7); ALKALINE PHOSPHATASE 77 U/L (46-116); ASPARTATE AMINO TRANSFERASE 16 U/L (15-37); BILIRUBIN,TOTAL 0.3 MG/DL (0.2-1.0); CKMB 2.4 NG/ML (0.0-3.6); CREATINE KINASE 214 U/L (26-308)
[2019-07-10] MEDS ORDERED: Miralax 17gm pkt ORAL PRN (23:00)
[2019-07-10] MEDS ORDERED: Albuterol/Ipratropium 3ml neb HHN PRN (23:00)
[2019-07-10] MEDS ORDERED: Morphine Sulfate 2mg/ml Inj(IV/IM USE ONLY) IVP PRN (23:00)
[2019-07-10] MEDS ORDERED: Nitroglycerin Subl 0.4mg tab SL PRN ×2 (23:00→23:30)
--- NOTE | 2019-07-10 23:12 | NUR ---
ED Nurse Note: REPORT GIVEN TO THUY LOERA FROM [facility].
[2019-07-10] MEDS ORDERED: Clindamycin 600mg 50 ML IVPB ONE (23:15)
--- NOTE | 2019-07-10 23:15 | NUR ---
ED Nurse Note: PT REFUSED VRE/CRE SWAB.
--- NOTE | 2019-07-10 23:35 | NUR ---
ED Nurse Note: PT TRANSFERRED TO [facility], ALL BELONGINGS SENT W/ PT, IV INTACT AND PATENT, BELONGING LIST SENT W/ PT, VSS, CARE ENDORSED TO RN EVARISTO FROM [facility].
[2019-07-11] VITALS: BP 150/95
[2019-07-11] MEDS ORDERED: Vancomycin 1 GM in D5W 275 ML IV SCH (00:30)
[2019-07-11] MEDS: Vancomycin 1.5gm Premix IVPB SCH ×2 (01:11→09:12)
[2019-07-11 01:47] VITALS: BP 150/95
[2019-07-11 04:00] VITALS: BP 144/93
[2019-07-11] MEDS: NovoLOG Insulin Flexpen SUBQ SCH ×2 (06:01→11:30)
[2019-07-11 06:15] LABS: BASOPHILS % (AUTO) 0.8 % (0.0-2.0); EOSINOPHILS % (AUTO) 1.9 % (0.0-3.0); HEMATOCRIT 41.5 % (42.0-52.0); HEMOGLOBIN 13.4 G/DL (14.2-18.0); LYMPHOCYTES % (AUTO) 10.7 % (20.0-45.0); MEAN CORPUSCULAR VOLUME 86 FL (80-99); NEUTROPHILS % (AUTO) 75.7 % (45.0-75.0); PLATELET COUNT 222 K/UL (150-450); RED CELL DISTRIBUTION WIDTH 13.4 % (11.6-14.8); WHITE BLOOD COUNT 6.9 K/UL (4.8-10.8)
--- NOTE | 2019-07-11 06:31 | NUR ---
nurse's notes: re-admitted this patient with same problem of bilateral lower extremity cellulitis; photo taken; wounds cleansed with NS and initiated wound care protocol. full admission assessment completed. educated patient regarding safety - to call his nurses when going to the bathroom; for pain - discussed plan of care for pain management; for skin care - instructed patient to keep both lower extremities elevated at all times and to keep dressings on at all times; for blood glucose monitoring - reinforced importance of keeping blood glucose levels at normal levels through diet and exercise; all areas of education needs to be reinforced as patient is non-compliant. new iv access on the left wrist. will continue to monitor.
[2019-07-11 06:37] LABS: ALANINE AMINOTRANSFERASE 13 U/L (12-78); ALBUMIN 2.5 G/DL (3.4-5.0); ALBUMIN/GLOBULIN RATIO 0.6 (1.0-2.7); ANION GAP 4 mmol/L (5-15); ASPARTATE AMINO TRANSFERASE 17 U/L (15-37); BILIRUBIN,TOTAL 0.3 MG/DL (0.2-1.0); BLOOD UREA NITROGEN 9 mg/dL (7-18); CALCIUM 8.6 MG/DL (8.5-10.1); CARBON DIOXIDE 31 MMOL/L (21-32); CHLORIDE 105 MMOL/L (98-107); CREATININE 0.8 MG/DL (0.55-1.30); POTASSIUM 3.8 MMOL/L (3.5-5.1); SODIUM 140 MMOL/L (136-145)
[2019-07-11 06:52] LABS: ALKALINE PHOSPHATASE 77 U/L (46-116)
--- NOTE | 2019-07-11 07:20 | NUR ---
nurse's notes: on admission, noted redness on both inguinal areas due to moisture. relayed this skin condition to jackie and suggested that the [facility]OC[facility] to come and see this patient for suggestions on wound care
[2019-07-11 08:00] VITALS: BP 158/94
[2019-07-11] MEDS ORDERED: Spironolactone 50mg tab ORAL SCH (09:00)
[2019-07-11] MEDS ORDERED: Enalapril 5mg tab ORAL SCH (09:00)
[2019-07-11] MEDS ORDERED: Cefepime HCl 2 GM in D5W 110 ML IV SCH (09:00)
[2019-07-11] MEDS ORDERED: Heparin 5000 units/ml inj SUBQ SCH (09:00)
--- NOTE | 2019-07-11 10:00 | NUR ---
NURSE NOTES:WOUND CARE NOTES:Morbidly obese pt whom presented on admission with edemae both lower ext . Both lower ext are erythematous and weeping small amt. of serous exudate.Haemosiderin noted to both lower ext. Xerosis skin L tibia with multiple small ulcerations. Skin is macerated. R tibia also noted to have Xerosis skin , multiple small ulcerations with surrounding skin maceration. Blood filled blister noted to lateral L 1st metatarsal. Small ulcer that is moist at base noted to L 3rd metatarsal. Small blood filled blister noted to L 4th metatarsal. Tx.Plan: Wash both lower ext with Chlorhexidine soap. Moisturize skin with Lac Hydrin. Apply Xeroform gauze over ulcerations. Cover with Abd pads and wrap with Kerlix from Base of toes to 1 inch below knees Daily and prn. Swab L st,3rd and 4th metatarsals with Betadine Daily. Elevate legs with pillows.
--- NOTE | 2019-07-11 11:51 | Consultation ---
History of Present Illness General Date patient seen: Jul 11, 2019 Chief Complaint: Skin Rash/Abscess Present Illness HPI 44 y/o M with hx of HTN, Dm2, seizure disorder presented to ED on 07/10 with worsenign b/l legs redness and swelling. He was recently admitted here but left AMA and reports nursing facility will not accept him in current condition. Denied CP, SOB, n/v/d, fall or trauma. Allergies: Coded Allergies: PENICILLINS (Verified Allergy, Unknown, 07/11/19) tolerates cephalosporins Medication History Scheduled Atorvastatin Calcium* (Lipitor*), 20 MG ORAL BEDTIME, (Reported) Bacitracin (Bacitracin), 1 APPLIC TOPIC THREE TIMES A DAY Cephalexin* (Keflex*), 500 MG ORAL EVERY 12 HOURS Enalapril Maleate* (Enalapril Maleate*), 5 MG ORAL DAILY, (Reported) Insulin Aspart (Novolog), SQ ACHS, (Reported) Levothyroxine Sodium* (Levothyroxine Sodium*), 100 MCG ORAL ACBREAKFAST, ( Reported) Polyethylene Glycol 3350* (Miralax*), 17 GM ORAL DAILY, (Reported) Propranolol Hcl* (Inderal*), 10 MG ORAL QID, (Reported) Quetiapine Fumarate* (Seroquel*), 300 MG ORAL DAILY, (Reported) Quetiapine Fumarate* (Seroquel*), 400 MG ORAL QHS, (Reported) Quetiapine Fumarate* (Seroquel*), 300 MG ORAL DAILY, (Reported) Spironolactone* (Aldactone*), 50 MG ORAL DAILY, (Reported) Valproic Acid (Valproic Acid), 500 MG PO Q12HR, (Reported) Scheduled PRN Acetaminophen* (Acetaminophen 325MG Tablet*), 650 MG ORAL Q4H PRN for Mild Pain/ Temp > 100.5, (Reported) Docusate Sodium* (Colace*), 100 MG ORAL DAILY PRN for Constipation, (Reported) Lorazepam* (Ativan*), 1 MG ORAL Q12HR PRN for For Anxiety, (Reported) Lorazepam* (Ativan*), 0.5 MG ORAL Q4HR PRN for For Anxiety, (Reported) Morphine 10mg/5ml Oral Soln* (Morphine 10mg/5ml Oral Soln*), 2 MG ORAL Q4HR PRN for For Pain, (Reported) Tramadol Hcl* (Ultram*), 50 MG ORAL Q8HR PRN for For Pain, (Reported) Zolpidem Tartrate* (Ambien*), 5 MG ORAL BEDTIME PRN for Insomnia, (Reported) Miscellaneous Medications Insulin Lispro (Humalog), 0 SUBQ, (Reported) Patient History Healthcare decision maker SELF Resuscitation status Full Code Advanced Directive on File Patient History Narrative Pmhx: as above Shx: reviewed Fhx: non contributory Review of Systems All Other Systems: negative except mentioned in HPI Physical Exam Physical Exam Narrative General Appearance: well appearing, no apparent distress Head: normocephalic, atraumatic Eyes: bilateral eye PERRL, bilateral eye EOMI ENT: hearing grossly normal, normal pharynx, TMs + canals normal, uvula midline Neck: full range of motion, supple, no meningismus, no bony tend Respiratory: lungs clear, normal breath sounds, no rhonchi, no respiratory distress, no retraction, no accessory muscle use Cardiovascular #1: normal peripheral pulses, regular rate, rhythm, no gallop, no JVD, no murmur Gastrointestinal: normal bowel sounds, non tender, soft, no mass, no organomegaly, non-distended, no guarding, no hernia, no pulsatile mass, no rebound Genitourinary: no CVA tenderness Musculoskeletal: swelling - And increased erythema bilaterally, pitting in nature, there are also several blister formations that have burst with secondary erythema Neurologic: oriented x3, responsive, circulation assistant III-XII nml as tested, motor strength/ tone normal, sensory intact Psychiatric: mood/affect normal Skin: other - As above Lymphatic: normal inspection Last 24 Hour Vital Signs Date Time Temp Pulse Resp B/P (MAP) Pulse Ox O2 Delivery O2 Flow Rate FiO2 07/11/19 09:11 158/94 07/11/19 08:00 98.4 89 20 158/94 (115) 96 07/11/19 04:00 98.8 99 17 144/93 (110) 95 07/11/19 01:47 99.0 105 18 150/95 (113) 95 07/11/19 00:00 99.0 105 18 150/95 (113) 95 07/10/19 23:55 Room Air 07/10/19 23:35 98.3 92 19 147/68 98 Room Air 07/10/19 20:38 98.2 95 18 134/75 98 Room Air 07/10/19 20:15 98.2 110 26 136/74 (94) 98 Room Air Intake and Output 07/10/19 07/11/19 19:00 07:00 Intake Total 867.3 ml Balance 867.3 ml Intake Oral 480 ml IV Total 387.3 ml # Voids 2 Laboratory Tests Test 07/10/19 21:15 07/11/19 05:40 White Blood Count 8.3 K/UL (4.8-10.8) 6.9 K/UL (4.8-10.8) Red Blood Count 4.73 M/UL (4.70-6.10) 4.80 M/UL (4.70-6.10) Hemoglobin 13.2 G/DL (14.2-18.0) L 13.4 G/DL (14.2-18.0) L Hematocrit 38.8 % (42.0-52.0) L 41.5 % (42.0-52.0) L Mean Corpuscular Volume 82 FL (80-99) 86 FL (80-99) Mean Corpuscular Hemoglobin 28.0 PG (27.0-31.0) 27.9 PG (27.0-31.0) Mean Corpuscular Hemoglobin Concent 34.1 G/DL (32.0-36.0) 32.3 G/DL (32.0-36.0) Red Cell Distribution Width 12.3 % (11.6-14.8) 13.4 % (11.6-14.8) Platelet Count 237 K/UL (150-450) 222 K/UL (150-450) Mean Platelet Volume 6.9 FL (6.5-10.1) 7.1 FL (6.5-10.1) Neutrophils (%) (Auto) 79.1 % (45.0-75.0) H 75.7 % (45.0-75.0) H Lymphocytes (%) (Auto) 10.0 % (20.0-45.0) L 10.7 % (20.0-45.0) L Monocytes (%) (Auto) 8.9 % (1.0-10.0) 11.0 % (1.0-10.0) H Eosinophils (%) (Auto) 1.3 % (0.0-3.0) 1.9 % (0.0-3.0) Basophils (%) (Auto) 0.7 % (0.0-2.0) 0.8 % (0.0-2.0) Sodium Level 140 MMOL/L (136-145) 140 MMOL/L (136-145) Potassium Level 3.8 MMOL/L (3.5-5.1) 3.8 MMOL/L (3.5-5.1) Chloride Level 105 MMOL/L (98-107) 105 MMOL/L (98-107) Carbon Dioxide Level 32 MMOL/L (21-32) 31 MMOL/L (21-32) Anion Gap 3 mmol/L (5-15) L 4 mmol/L (5-15) L Blood Urea Nitrogen 12 mg/dL (7-18) 9 mg/dL (7-18) Creatinine 1.1 MG/DL (0.55-1.30) 0.8 MG/DL (0.55-1.30) Estimat Glomerular Filtration Rate > 60 mL/min (>60) > 60 mL/min (>60) Glucose Level 93 MG/DL (74-106) 97 MG/DL (74-106) Lactic Acid Level 1.60 mmol/L (0.4-2.0) Calcium Level 8.7 MG/DL (8.5-10.1) 8.6 MG/DL (8.5-10.1) Total Bilirubin 0.3 MG/DL (0.2-1.0) 0.3 MG/DL (0.2-1.0) Aspartate Amino Transf (AST/SGOT) 16 U/L (15-37) 17 U/L (15-37) Alanine Aminotransferase (ALT/SGPT) 15 U/L (12-78) 13 U/L (12-78) Alkaline Phosphatase 77 U/L (46-116) 77 U/L (46-116) Total Creatine Kinase 214 U/L (26-308) Creatine Kinase MB 2.4 NG/ML (0.0-3.6) Creatine Kinase MB Relative Index 1.1 Pro-B-Type Natriuretic Peptide 67 pg/mL (0-125) Total Protein 6.8 G/DL (6.4-8.2) 7.0 G/DL (6.4-8.2) Albumin 2.6 G/DL (3.4-5.0) L 2.5 G/DL (3.4-5.0) L Globulin 4.2 g/dL 4.5 g/dL Albumin/Globulin Ratio 0.6 (1.0-2.7) L 0.6 (1.0-2.7) L Lipase 125 U/L (73-393) Height (Feet): 5 Height (Inches): 11.00 Weight (Pounds): 389 Medications Current Medications Medications (Trade) Dose Ordered Sig/Vannessa Route PRN Reason Start Time Stop Time Status Last Admin Dose Admin Acetaminophen (Tylenol) 650 mg Q4H PRN ORAL fever 07/10/19 23:00 08/09/19 22:59 Albuterol/ Ipratropium (Albuterol/ Ipratropium) 3 ml EVERY 4 HOURS PRN HHN Shortness of Breath 07/10/19 23:00 07/15/19 22:59 Cefepime HCl 2 gm/ Dextrose 110 ml @ 220 mls/hr EVERY 12 HOURS IV 07/11/19 09:00 07/18/19 08:59 07/11/19 11:06 Dextrose (Dextrose 50%) STAT PRN IV Hypoglycemia 07/10/19 23:00 08/09/19 22:59 Enalapril Maleate (Vasotec) 5 mg DAILY ORAL 07/11/19 09:00 08/10/19 08:59 07/11/19 09:11 Heparin Sodium (Porcine) (Heparin 5000 units/ml) 5,000 units EVERY 12 HOURS SUBQ 07/11/19 09:00 08/10/19 08:59 07/11/19 09:16 Insulin Aspart (NovoLOG) BEFORE MEALS AND HS SUBQ 07/11/19 06:30 08/10/19 06:29 07/11/19 06:01 Levothyroxine Sodium (Synthroid) 100 mcg ACBREAKFAST ORAL 07/11/19 06:30 08/10/19 06:29 07/11/19 05:58 Morphine Sulfate (Morphine Sulfate) 2 mg Q4H PRN IVP Moderate Pain (Pain Scale 4-6) 07/10/19 23:00 07/17/19 22:59 Nitroglycerin (Ntg) 0.4 mg Q5M PRN SL Prn Chest Pain 07/10/19 23:30 08/09/19 22:59 Ondansetron HCl (Zofran) 4 mg Q6H PRN IVP Nausea & Vomiting 07/10/19 23:00 08/09/19 22:59 Polyethylene Glycol (Miralax) 17 gm DAILYPRN PRN ORAL Constipation 07/10/19 23:00 08/09/19 22:59 Quetiapine Fumarate (SEROquel) 300 mg DAILY ORAL 07/11/19 09:00 08/10/19 08:59 07/11/19 09:11 Spironolactone (Aldactone) 50 mg DAILY ORAL 07/11/19 09:00 08/10/19 08:59 07/11/19 09:11 Temazepam (Restoril) 15 mg HSPRN PRN ORAL Insomnia 07/10/19 23:00 07/17/19 22:59 Valproic Acid (Depakene) 500 mg Q12HR ORAL 07/11/19 09:00 08/10/19 08:59 07/11/19 09:11 Vancomycin HCl/ Dextrose 275 ml @ 137.5 mls/ hr Q8H IVPB 07/11/19 00:00 07/16/19 00:00 07/11/19 09:12 Assessment/Plan Assessment/Plan: Abx: IV Vancomycin 07/10- Cefepime 07/10- CLindamycin x1 07/10 Assessment: B/l LE cellulitis Afebrile NO leukocytosis HTN Dm2 seizure disorder Plan: -Continue empiric IV Vancomycin #2/7-10 -Dc Cefepime #2 (had reaction of hallucination and dizziness) -f/u cx -Monitor CBC/CMP, temperatures -wound care Thank you for this consultation. Will continue to follow along with you. Discussed with Antoinette Summers M.D. Jul 11, 2019 11:51
[2019-07-11 12:00] VITALS: BP 137/83
--- NOTE | 2019-07-11 12:15 | NUR ---
NURSE NOTES: PATIENT WITH C/O DIZZINESS AND HALLUCINATIONS DURING ADMINISTRATION OF NEW ANTIBIOTIC, CEFEPIME. TREATMENT STOPPED. NOTIFIED. AWAITING RETURN CALL. VSS. AFEBRILE.
--- NOTE | 2019-07-11 12:15 | Consultation ---
History of Present Illness General Date patient seen: Jul 11, 2019 Chief Complaint: Skin Rash/Abscess Present Illness HPI 44 year old male with hx of psychiatric disorder, obesity, DM, hypothyroidism, presented to ER from his [facility] with complaints of continued worsening of redness and swelling in both of his leg. He has increased swelling of both legs and increased discharge. He is admitted for worsening cellulitis. Allergies: Coded Allergies: PENICILLINS (Verified Allergy, Unknown, 07/11/19) tolerates cephalosporins Medication History Scheduled Atorvastatin Calcium* (Lipitor*), 20 MG ORAL BEDTIME, (Reported) Bacitracin (Bacitracin), 1 APPLIC TOPIC THREE TIMES A DAY Cephalexin* (Keflex*), 500 MG ORAL EVERY 12 HOURS Enalapril Maleate* (Enalapril Maleate*), 5 MG ORAL DAILY, (Reported) Insulin Aspart (Novolog), SQ ACHS, (Reported) Levothyroxine Sodium* (Levothyroxine Sodium*), 100 MCG ORAL ACBREAKFAST, ( Reported) Polyethylene Glycol 3350* (Miralax*), 17 GM ORAL DAILY, (Reported) Propranolol Hcl* (Inderal*), 10 MG ORAL QID, (Reported) Quetiapine Fumarate* (Seroquel*), 300 MG ORAL DAILY, (Reported) Quetiapine Fumarate* (Seroquel*), 400 MG ORAL QHS, (Reported) Quetiapine Fumarate* (Seroquel*), 300 MG ORAL DAILY, (Reported) Spironolactone* (Aldactone*), 50 MG ORAL DAILY, (Reported) Valproic Acid (Valproic Acid), 500 MG PO Q12HR, (Reported) Scheduled PRN Acetaminophen* (Acetaminophen 325MG Tablet*), 650 MG ORAL Q4H PRN for Mild Pain/ Temp > 100.5, (Reported) Docusate Sodium* (Colace*), 100 MG ORAL DAILY PRN for Constipation, (Reported) Lorazepam* (Ativan*), 1 MG ORAL Q12HR PRN for For Anxiety, (Reported) Lorazepam* (Ativan*), 0.5 MG ORAL Q4HR PRN for For Anxiety, (Reported) Morphine 10mg/5ml Oral Soln* (Morphine 10mg/5ml Oral Soln*), 2 MG ORAL Q4HR PRN for For Pain, (Reported) Tramadol Hcl* (Ultram*), 50 MG ORAL Q8HR PRN for For Pain, (Reported) Zolpidem Tartrate* (Ambien*), 5 MG ORAL BEDTIME PRN for Insomnia, (Reported) Miscellaneous Medications Insulin Lispro (Humalog), 0 SUBQ, (Reported) Patient History Healthcare decision maker SELF Resuscitation status Full Code Advanced Directive on File Past Medical/Surgical History Past Medical/Surgical History: (1) Psychiatric disorder (2) Seizure disorder (3) Hypothyroidism (4) Diabetes mellitus (5) HTN (hypertension) Review of Systems All Other Systems: negative except mentioned in HPI Physical Exam General Appearance: WD/WN, obese Lines, tubes and drains: peripheral HEENT: normocephalic, atraumatic Neck: non-tender, normal alignment Respiratory/Chest: chest wall non-tender, lungs clear Breasts: no masses Cardiovascular/Chest: normal peripheral pulses Abdomen: normal bowel sounds Genitourinary/Rectal: normal genital exam Extremities: normal range of motion Neurologic: tree planter II-XII grossly normal Last 24 Hour Vital Signs Date Time Temp Pulse Resp B/P (MAP) Pulse Ox O2 Delivery O2 Flow Rate FiO2 07/11/19 09:11 158/94 07/11/19 08:00 98.4 89 20 158/94 (115) 96 07/11/19 04:00 98.8 99 17 144/93 (110) 95 07/11/19 01:47 99.0 105 18 150/95 (113) 95 07/11/19 00:00 99.0 105 18 150/95 (113) 95 07/10/19 23:55 Room Air 07/10/19 23:35 98.3 92 19 147/68 98 Room Air 07/10/19 20:38 98.2 95 18 134/75 98 Room Air 07/10/19 20:15 98.2 110 26 136/74 (94) 98 Room Air Intake and Output 07/10/19 07/11/19 19:00 07:00 Intake Total 867.3 ml Balance 867.3 ml Intake Oral 480 ml IV Total 387.3 ml # Voids 2 Laboratory Tests Test 07/10/19 21:15 07/11/19 05:40 White Blood Count 8.3 K/UL (4.8-10.8) 6.9 K/UL (4.8-10.8) Red Blood Count 4.73 M/UL (4.70-6.10) 4.80 M/UL (4.70-6.10) Hemoglobin 13.2 G/DL (14.2-18.0) L 13.4 G/DL (14.2-18.0) L Hematocrit 38.8 % (42.0-52.0) L 41.5 % (42.0-52.0) L Mean Corpuscular Volume 82 FL (80-99) 86 FL (80-99) Mean Corpuscular Hemoglobin 28.0 PG (27.0-31.0) 27.9 PG (27.0-31.0) Mean Corpuscular Hemoglobin Concent 34.1 G/DL (32.0-36.0) 32.3 G/DL (32.0-36.0) Red Cell Distribution Width 12.3 % (11.6-14.8) 13.4 % (11.6-14.8) Platelet Count 237 K/UL (150-450) 222 K/UL (150-450) Mean Platelet Volume 6.9 FL (6.5-10.1) 7.1 FL (6.5-10.1) Neutrophils (%) (Auto) 79.1 % (45.0-75.0) H 75.7 % (45.0-75.0) H Lymphocytes (%) (Auto) 10.0 % (20.0-45.0) L 10.7 % (20.0-45.0) L Monocytes (%) (Auto) 8.9 % (1.0-10.0) 11.0 % (1.0-10.0) H Eosinophils (%) (Auto) 1.3 % (0.0-3.0) 1.9 % (0.0-3.0) Basophils (%) (Auto) 0.7 % (0.0-2.0) 0.8 % (0.0-2.0) Sodium Level 140 MMOL/L (136-145) 140 MMOL/L (136-145) Potassium Level 3.8 MMOL/L (3.5-5.1) 3.8 MMOL/L (3.5-5.1) Chloride Level 105 MMOL/L (98-107) 105 MMOL/L (98-107) Carbon Dioxide Level 32 MMOL/L (21-32) 31 MMOL/L (21-32) Anion Gap 3 mmol/L (5-15) L 4 mmol/L (5-15) L Blood Urea Nitrogen 12 mg/dL (7-18) 9 mg/dL (7-18) Creatinine 1.1 MG/DL (0.55-1.30) 0.8 MG/DL (0.55-1.30) Estimat Glomerular Filtration Rate > 60 mL/min (>60) > 60 mL/min (>60) Glucose Level 93 MG/DL (74-106) 97 MG/DL (74-106) Lactic Acid Level 1.60 mmol/L (0.4-2.0) Calcium Level 8.7 MG/DL (8.5-10.1) 8.6 MG/DL (8.5-10.1) Total Bilirubin 0.3 MG/DL (0.2-1.0) 0.3 MG/DL (0.2-1.0) Aspartate Amino Transf (AST/SGOT) 16 U/L (15-37) 17 U/L (15-37) Alanine Aminotransferase (ALT/SGPT) 15 U/L (12-78) 13 U/L (12-78) Alkaline Phosphatase 77 U/L (46-116) 77 U/L (46-116) Total Creatine Kinase 214 U/L (26-308) Creatine Kinase MB 2.4 NG/ML (0.0-3.6) Creatine Kinase MB Relative Index 1.1 Pro-B-Type Natriuretic Peptide 67 pg/mL (0-125) Total Protein 6.8 G/DL (6.4-8.2) 7.0 G/DL (6.4-8.2) Albumin 2.6 G/DL (3.4-5.0) L 2.5 G/DL (3.4-5.0) L Globulin 4.2 g/dL 4.5 g/dL Albumin/Globulin Ratio 0.6 (1.0-2.7) L 0.6 (1.0-2.7) L Lipase 125 U/L (73-393) Height (Feet): 5 Height (Inches): 11.00 Weight (Pounds): 389 Medications Current Medications Medications (Trade) Dose Ordered Sig/Vannessa Route PRN Reason Start Time Stop Time Status Last Admin Dose Admin Acetaminophen (Tylenol) 650 mg Q4H PRN ORAL fever 07/10/19 23:00 08/09/19 22:59 Albuterol/ Ipratropium (Albuterol/ Ipratropium) 3 ml EVERY 4 HOURS PRN HHN Shortness of Breath 07/10/19 23:00 07/15/19 22:59 Cefepime HCl 2 gm/ Dextrose 110 ml @ 220 mls/hr EVERY 12 HOURS IV 07/11/19 09:00 07/18/19 08:59 07/11/19 11:06 Dextrose (Dextrose 50%) STAT PRN IV Hypoglycemia 07/10/19 23:00 08/09/19 22:59 Enalapril Maleate (Vasotec) 5 mg DAILY ORAL 07/11/19 09:00 08/10/19 08:59 07/11/19 09:11 Heparin Sodium (Porcine) (Heparin 5000 units/ml) 5,000 units EVERY 12 HOURS SUBQ 07/11/19 09:00 08/10/19 08:59 07/11/19 09:16 Insulin Aspart (NovoLOG) BEFORE MEALS AND HS SUBQ 07/11/19 06:30 08/10/19 06:29 07/11/19 06:01 Levothyroxine Sodium (Synthroid) 100 mcg ACBREAKFAST ORAL 07/11/19 06:30 08/10/19 06:29 07/11/19 05:58 Morphine Sulfate (Morphine Sulfate) 2 mg Q4H PRN IVP Moderate Pain (Pain Scale 4-6) 07/10/19 23:00 07/17/19 22:59 Nitroglycerin (Ntg) 0.4 mg Q5M PRN SL Prn Chest Pain 07/10/19 23:30 08/09/19 22:59 Ondansetron HCl (Zofran) 4 mg Q6H PRN IVP Nausea & Vomiting 07/10/19 23:00 08/09/19 22:59 Polyethylene Glycol (Miralax) 17 gm DAILYPRN PRN ORAL Constipation 07/10/19 23:00 08/09/19 22:59 Quetiapine Fumarate (SEROquel) 300 mg DAILY ORAL 07/11/19 09:00 08/10/19 08:59 07/11/19 09:11 Spironolactone (Aldactone) 50 mg DAILY ORAL 07/11/19 09:00 08/10/19 08:59 07/11/19 09:11 Temazepam (Restoril) 15 mg HSPRN PRN ORAL Insomnia 07/10/19 23:00 07/17/19 22:59 Valproic Acid (Depakene) 500 mg Q12HR ORAL 07/11/19 09:00 08/10/19 08:59 07/11/19 09:11 Vancomycin HCl/ Dextrose 275 ml @ 137.5 mls/ hr Q8H IVPB 07/11/19 00:00 07/16/19 00:00 07/11/19 09:12 Assessment/Plan Problem List: (1) Cellulitis ICD Codes: L03.90 - Cellulitis, unspecified SNOMED: 978491966 (2) Seizure disorder ICD Codes: G40.909 - Epilepsy, unspecified, not intractable, without status epilepticus SNOMED: 406786434 (3) Hypothyroidism ICD Codes: E03.9 - Hypothyroidism, unspecified SNOMED: 72222580 (4) Diabetes mellitus ICD Codes: E11.9 - Type 2 diabetes mellitus without complications SNOMED: 77558690 (5) History of suicide attempt ICD Codes: Z91.5 - Personal history of self-harm SNOMED: 77121899, 767638964 (6) Morbid obesity ICD Codes: E66.01 - Morbid (severe) obesity due to excess calories SNOMED: 440748045 (7) Psychiatric disorder ICD Codes: F99 - Mental disorder, not otherwise specified SNOMED: 99319509 Assessment/Plan: wound care knight cultures iv abx sliding scale check electrolytes dvt prophylaxis Matt Cabrera MD Jul 11, 2019 12:15
--- NOTE | 2019-07-11 12:37 | NUR ---
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 Pt seen in ED yesterday morning for same reason left AMA. SI: Complex Lower Extremity Cellulitis VS: BP: 136/74 HR: 110 RR 26 02 Sat 98% (RA) T: 98.2 NT: Anion gap 3 Albumin 0.6 IS: none Admitted to MedSurg MedSurg status DCP: Pending Hospital Stay
--- NOTE | 2019-07-11 12:53 | NUR ---
NURSE NOTES: PATIENT REMAINS STABLE AFTER RXN TO ANTIBIOTIC. MEDICATION DISCONTINUED PER DR. MARIN.
[2019-07-11] MEDS ORDERED: Dextrose 50% 25ml Syringe IV PRN (13:00)
--- NOTE | 2019-07-11 14:15 | NUR ---
NURSE NOTES: PATIENT AT NURSING UNIT WANTING LEAVE AMA. PATIENT STATES THEY HAVE TO LEAVE; REFUSED TO SIGN AMA. ATTEMPTED TO REASON WITH PATIENT BUT REFUSED.HEPLOCK REMOVE BY PATIENT. LEFT PERSONAL BELONGINGS AT NURSE'S STATION AND PROCEEDED TO GET ON ELEVATOR. PLACED CALL TO SECURITY, SECURITY ATTEMPTED TO TALK TO PATIENT TO RETURN TO NURSING UNIT. PATIENT LEFT PREMISES. DR. MARIN MADE AWARE AND DR. SRINIVASAN HERE ROUNDING. WILL MAKE CHARGE NURSE AWARE ONCE RETURN FROM LUNCH.
[2019-07-11] MEDS ORDERED: NS Irrig 1000ml ONE (15:37)
[2019-07-11] MEDS ORDERED: NS 275ml ONE (15:37)
[2019-07-11] MEDS ORDERED: Tubing IV Secondary IV ONE (15:37)
--- NOTE | 2019-07-12 09:02 | Discharge Summary ---
Discharge Summary Discharge Summary _ DATE OF ADMISSION: 07/10/2019 DATE OF DISCHARGE: 07/11/2019 Patient left AGAINST MEDICAL ADVICE REASON FOR ADMISSION: 44 years old male with past medical history of diabetes mellitus, obesity, psychiatric disorder, hypothyroidism, [facility] with worsening bilateral lower legs redness and swelling. Patient was recently admitted , but left AGAINST MEDICAL ADVICE . He reported that nursing facility did not accepted him in the current condition. Upon evaluation laboratory work-up revealed no leukocytosis , stable hemoglobin and hematocrit. Stable electrolytes and renal parameters . Lactic acid 1.6. Patient admitted for further management to medical surgical floor for ower extremity cellulitis CONSULTANTS: pulmonary/critical care Dr. Cabrera ID specialist Dr. Call [facility] COURSE: Patient admitted to medical surgical floor and started on empiric antibiotic as per ID specialist recommendation. Wound care provided. Patient remained afebrile, no leukocytosis. Home medication resumed. Blood pressure was managed with ASCENCION inhibitor. DVT prophylaxis provided. Blood sugar was managed with sliding scale of insulin. Pulse oximetry was stable on room air. Pain management was addressed. Bowel regimen instituted. Seizure precautions maintained. Depakote continued. Levothyroxine was continued. Supportive care provided. Patient decided to sign AGAINST MEDICAL ADVICE. The risks and consequences of signing AGAINST MEDICAL ADVICE were discussed with patient in detail. Patient verbalized understanding, nevertheless signed AMA form and left. FINAL DIAGNOSES: Bilateral lower extremity cellulitis Hypertension Diabetes mellitus type 2 Seizure disorder Hypothyroidism Morbid obesity Psychiatric disorder I have been assigned to dictate discharge summary for this account. I was not involved in the patient's management. Evelyne Verdin NP Jul 12, 2019 09:02
== END 2019-07-11 14:03 | disposition left against medical advice (07) | DRG 603 ==
LOC: EMR 21:28 → 3E 21:57 → EDBEDREQ 23:07 → 3E 23:49
DX: L03.116 Cellulitis of left lower limb (principal); Z68.43 Body mass index [BMI] 50.0-59.9, adult; L03.115 Cellulitis of right lower limb; E11.8 Type 2 diabetes mellitus with unspecified complications; E66.01 Morbid (severe) obesity due to excess calories; I10 Essential (primary) hypertension; E03.9 Hypothyroidism, unspecified; G40.909 Epilepsy, unspecified, not intractable, without status epilepticus; F99 Mental disorder, not otherwise specified; Z88.0 Allergy status to penicillin; Z79.4 Long term (current) use of insulin
CPT/HCPCS: 36415; 80053; 82550; 82553; 82962; 83605; 83690; 83880; 85025; 87040; 87081; 96365; 99285; J1815; S0077